=== PATIENT | male | born 1970 | race Caucasian/White ===

== ENCOUNTER 2019-06-18 20:31 | Emergency (ER) | payer SELFPAY ==
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
[2019-06-18] MEDS ORDERED: NS 0.9% 1000 ML** 2,000 ML IV ONE (20:51)
[2019-06-18] MEDS ORDERED: Ondansetron INJ* 2 MG/ML VIAL IV ONE (20:52)
[2019-06-18] MEDS ORDERED: Morphine 4 MG/ML VIAL (1 ml) 4 MG/ML VIAL IV ONE (20:52)
[2019-06-18 21:37] LABS: ABS Eosinophils 0.2 10^3/ul (0-0.6); ABS Monocytes 0.6 10^3/ul (0-0.8); ABS Neutrophils 4.4 10^3/ul (1.5-7.7); Eosinophil % 2.5 %; Hematocrit 44 % (42-52); Hemoglobin 14.6 g/dL (14.0-18.0); Mean Corpuscular HGB Conc 34 g/dL (31-36); Mean Corpuscular Hemoglobin 29 pg (27-31); Mean Corpuscular Volume 87 fL (80-94); Mean Platelet Volume 9.3 fL (7.4-10.4); Nucleated Red Blood Cells % 0.1; Platelet Count 196 10^3/uL (150-450); Red Blood Count 5.01 10^6 /uL (4.18-5.48); Red Cell Distribution Width 14 % (10-15); White Blood Count 8.3 10^3/uL (3.5-10.8)
[2019-06-18 21:48] LABS: Urine Appearance Clear; Urine Bacteria Absent (Absent); Urine Bilirubin Negative (Negative); Urine Blood Negative (Negative); Urine Color Yellow; Urine Glucose Negative (Negative); Urine Ketones Negative (Negative); Urine Nitrite Negative (Negative); Urine Protein Negative (Negative); Urine Red Blood Cell Absent (Absent); Urine Specific Gravity 1.017 (1.010-1.030); Urine Squamous Epithelial Cell Present (Absent); Urine Urobilinogen Negative (Negative); Urine White Blood Cell 2+(11-20/hpf) (Absent)
[2019-06-18 21:54] LABS: Albumin 3.7 g/dL (3.2-5.2); Albumin/Globulin Ratio 1.3 (1-3); BUN/Creatinine Ratio 27.6 (8-20); C Reactive Protein 3.04 mg/L (<8.01); Calcium 9.2 mg/dL (8.6-10.3); EGFR African American 111.9 (>60); EGFR Non-African American 92.5 (>60); Globulin 2.9 g/dL (2-4); Potassium 4.3 mmol/L (3.5-5.0); Total Bilirubin 0.3 mg/dL (0.2-1.0); Total Protein 6.6 g/dL (6.4-8.9)
[2019-06-18] MEDS ORDERED: Iohexol 300* (CONTRAST) 10 ML SDV IV ONE (22:38)
[2019-06-19 00:36] VITALS: BP 134/76
== END 2019-06-19 00:50 | disposition home or self-care (01) ==
LOC: ED 20:31
DX: K52.9 Noninfective gastroenteritis and colitis, unspecified (principal); R10.30 Lower abdominal pain, unspecified; I10 Essential (primary) hypertension; F17.210 Nicotine dependence, cigarettes, uncomplicated; R11.2 Nausea with vomiting, unspecified
CPT/HCPCS: 36415; 74177; 80053; 81003; 81015; 83605; 83690; 85025; 86140; 87086; 93005; 96361; 96374; 96375; 99283; J2270; J2405; Q9967

== ENCOUNTER 2019-07-08 00:43 | Emergency (ER) | payer MEDICAID ==
[2019-07-08 03:05] LABS: Urine Appearance Cloudy; Urine Bilirubin Negative (Negative); Urine Blood Negative (Negative); Urine Color Yellow; Urine Glucose Negative (Negative); Urine Ketones Negative (Negative); Urine Nitrite Negative (Negative); Urine Protein Negative (Negative); Urine Specific Gravity 1.023 (1.010-1.030); Urine Urobilinogen Negative (Negative)
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
[2019-07-08] MEDS ORDERED: Al Hydrox/Mg Hydrox/Simet LIQ* 30 ML UDC PO ONE (03:10)
[2019-07-08] MEDS ORDERED: Lidocaine 2% VISCOUS* 15 ML UDC PO ONE (03:10)
[2019-07-08 03:31] LABS: ABS Eosinophils 0.1 10^3/ul (0-0.6); ABS Lymphocytes 2.6 10^3/ul (1.0-4.8); ABS Monocytes 0.6 10^3/ul (0-0.8); ABS Neutrophils 5.4 10^3/ul (1.5-7.7); Eosinophil % 1.3 %; Hematocrit 46 % (42-52); Hemoglobin 15.8 g/dL (14.0-18.0); Lymphocyte % 29.5 %; Mean Corpuscular HGB Conc 34 g/dL (31-36); Mean Corpuscular Hemoglobin 30 pg (27-31); Mean Corpuscular Volume 87 fL (80-94); Mean Platelet Volume 9.4 fL (7.4-10.4); Nucleated Red Blood Cells % 0.2; Platelet Count 214 10^3/uL (150-450); Red Blood Count 5.33 10^6 /uL (4.18-5.48); Red Cell Distribution Width 15 % (10-15); White Blood Count 8.8 10^3/uL (3.5-10.8)
[2019-07-08 03:35] LABS: INR 1.04 (0.82-1.09)
[2019-07-08 03:49] LABS: Alcohol < 10 mg/dL (<10)
[2019-07-08 03:50] LABS: ALT 301 U/L (7-52); AST 68 U/L (13-39); Albumin 4.3 g/dL (3.2-5.2); Albumin/Globulin Ratio 1.3 (1-3); Alkaline Phosphatase 152 U/L (34-104); Anion Gap 6 mmol/L (2-11); BUN/Creatinine Ratio 14.6 (8-20); Blood Urea Nitrogen 13 mg/dL (6-24); CO2 Carbon Dioxide 25 mmol/L (22-32); Calcium 9.9 mg/dL (8.6-10.3); Chloride 105 mmol/L (101-111); EGFR Non-African American 90.1 (>60); Globulin 3.4 g/dL (2-4); Glucose 92 mg/dL (70-100); Potassium 4.1 mmol/L (3.5-5.0); Sodium 136 mmol/L (135-145); Total Protein 7.7 g/dL (6.4-8.9)
[2019-07-08] MEDS ORDERED: Ibuprofen TAB* 400 MG PO ONE (03:55)
[2019-07-08 05:10] LABS: Urine Benzodiazepine Screen None Detected (None Detect); Urine Opiates Screen None Detected (None Detect)
[2019-07-08 05:27] VITALS: BP 146/70
== END 2019-07-08 05:20 | disposition home or self-care (01) ==
LOC: ED 00:43
DX: R10.13 Epigastric pain (principal); R51 Headache; R11.0 Nausea; R53.83 Other fatigue; K59.00 Constipation, unspecified; I10 Essential (primary) hypertension
CPT/HCPCS: 36415; 74018; 80053; 80307; 80320; 81003; 83605; 84484; 85025; 85610; 93005; 99282; A9270-GY; G0480

== ENCOUNTER 2019-07-08 21:56 | Emergency (ER) | payer MEDICAID ==
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
[2019-07-08 22:48] LABS: ABS Eosinophils 0.1 10^3/ul (0-0.6); ABS Lymphocytes 2.1 10^3/ul (1.0-4.8); ABS Monocytes 0.6 10^3/ul (0-0.8); ABS Neutrophils 4.7 10^3/ul (1.5-7.7); Eosinophil % 1.5 %; Hematocrit 45 % (42-52); Hemoglobin 15.3 g/dL (14.0-18.0); Lymphocyte % 27.5 %; Mean Corpuscular HGB Conc 34 g/dL (31-36); Mean Corpuscular Hemoglobin 29 pg (27-31); Mean Corpuscular Volume 87 fL (80-94); Mean Platelet Volume 9.3 fL (7.4-10.4); Nucleated Red Blood Cells % 0.1; Platelet Count 217 10^3/uL (150-450); Red Blood Count 5.24 10^6 /uL (4.18-5.48); Red Cell Distribution Width 15 % (10-15); White Blood Count 7.5 10^3/uL (3.5-10.8)
[2019-07-08 23:06] LABS: Albumin 4.3 g/dL (3.2-5.2); Albumin/Globulin Ratio 1.4 (1-3); BUN/Creatinine Ratio 15.5 (8-20); C Reactive Protein 5.97 mg/L (<8.01); Calcium 9.6 mg/dL (8.6-10.3); EGFR African American 116.6 (>60); EGFR Non-African American 96.3 (>60); Globulin 3.1 g/dL (2-4); Potassium 4.1 mmol/L (3.5-5.0); Total Protein 7.4 g/dL (6.4-8.9)
[2019-07-08 23:32] LABS: TSH (Thyroid Stimulating Horm) 2.27 mcIU/mL (0.34-5.60)
[2019-07-08 23:46] VITALS: BP 133/66
== END 2019-07-08 23:46 | disposition home or self-care (01) ==
LOC: ED 21:56
DX: R07.89 Other chest pain (principal); R06.02 Shortness of breath; I10 Essential (primary) hypertension; Z91.14 Patient's other noncompliance with medication regimen; F17.200 Nicotine dependence, unspecified, uncomplicated
CPT/HCPCS: 36415; 71046; 80053; 83735; 84443; 84484; 85025; 85379; 86140; 99283

== ENCOUNTER 2019-07-12 01:05 | Emergency (ER) | payer MEDICAID ==
[2019-07-12] MEDS ORDERED: Ketorolac INJ* 30 MG/ML 1 ML VIAL IM ONE (01:36)
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
[2019-07-12 02:16] LABS: ABS Eosinophils 0.2 10^3/ul (0-0.6); ABS Lymphocytes 2.4 10^3/ul (1.0-4.8); ABS Monocytes 0.5 10^3/ul (0-0.8); ABS Neutrophils 3.2 10^3/ul (1.5-7.7); Hematocrit 43 % (42-52); Hemoglobin 14.7 g/dL (14.0-18.0); Lymphocyte % 38.4 %; Mean Corpuscular HGB Conc 34 g/dL (31-36); Mean Corpuscular Hemoglobin 29 pg (27-31); Mean Corpuscular Volume 87 fL (80-94); Mean Platelet Volume 9.3 fL (7.4-10.4); Nucleated Red Blood Cells % 0.1; Platelet Count 198 10^3/uL (150-450); Red Blood Count 5.01 10^6 /uL (4.18-5.48); Red Cell Distribution Width 15 % (10-15); White Blood Count 6.3 10^3/uL (3.5-10.8)
[2019-07-12 02:21] LABS: INR 0.99 (0.82-1.09)
[2019-07-12 02:38] LABS: Albumin 4.1 g/dL (3.2-5.2); Albumin/Globulin Ratio 1.4 (1-3); BUN/Creatinine Ratio 13.9 (8-20); Calcium 9.6 mg/dL (8.6-10.3); EGFR African American 125.1 (>60); EGFR Non-African American 103.4 (>60); Potassium 3.9 mmol/L (3.5-5.0); Total Bilirubin 0.6 mg/dL (0.2-1.0); Total Protein 7.1 g/dL (6.4-8.9)
[2019-07-12 04:07] VITALS: BP 152/91
== END 2019-07-12 04:05 | disposition home or self-care (01) ==
LOC: ED 01:05
DX: R07.89 Other chest pain (principal); I10 Essential (primary) hypertension; J45.909 Unspecified asthma, uncomplicated; F32.9 Major depressive disorder, single episode, unspecified; F17.200 Nicotine dependence, unspecified, uncomplicated
CPT/HCPCS: 36415; 71045; 80053; 83605; 83880; 84484; 85025; 85610; 93005; 96372; 99282; J1885

== ENCOUNTER 2019-07-13 07:27 | Observation (INO) | payer MEDICAID ==
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
[2019-07-13] MEDS ORDERED: Acetaminophen TAB* 325 MG PO ONE (07:49)
[2019-07-13] MEDS ORDERED: Aspirin TAB* 325 MG PO ONE (07:49)
[2019-07-13 07:56] LABS: ABS Eosinophils 0.2 10^3/ul (0-0.6); ABS Lymphocytes 2.6 10^3/ul (1.0-4.8); ABS Monocytes 0.4 10^3/ul (0-0.8); Eosinophil % 3.2 %; Hematocrit 43 % (42-52); Hemoglobin 14.6 g/dL (14.0-18.0); Lymphocyte % 42.2 %; Mean Corpuscular HGB Conc 34 g/dL (31-36); Mean Corpuscular Hemoglobin 30 pg (27-31); Mean Corpuscular Volume 87 fL (80-94); Mean Platelet Volume 9.6 fL (7.4-10.4); Nucleated Red Blood Cells % 0.1; Platelet Count 192 10^3/uL (150-450); Red Blood Count 4.93 10^6 /uL (4.18-5.48); Red Cell Distribution Width 15 % (10-15); White Blood Count 6.3 10^3/uL (3.5-10.8)
[2019-07-13 08:11] LABS: Albumin/Globulin Ratio 1.5 (1-3); BUN/Creatinine Ratio 17.7 (8-20); Calcium 9.2 mg/dL (8.6-10.3); EGFR African American 125.1 (>60); EGFR Non-African American 103.4 (>60); Globulin 2.7 g/dL (2-4); Potassium 3.6 mmol/L (3.5-5.0); Total Bilirubin 0.5 mg/dL (0.2-1.0); Total Protein 6.7 g/dL (6.4-8.9)
[2019-07-13] MEDS ORDERED: Ondansetron ODT TAB* 4 MG PO ONE (08:34)
[2019-07-13] MEDS ORDERED: Nitroglycerin TAB 0.4 MG* 0.4 MG TAB SL ONE (10:10)
[2019-07-13] MEDS ORDERED: Ondansetron INJ* 2 MG/ML VIAL IV ONE (10:36)
[2019-07-13] MEDS ORDERED: Ketorolac INJ* 30 MG/ML 1 ML VIAL IV PUSH ONE (10:37)
[2019-07-13] MEDS ORDERED: Paliperidone ER TAB* 9 MG TAB.ER PO ONE (13:00)
--- NOTE | 2019-07-13 13:02 | HP ---
ADMISSION HISTORY AND PHYSICAL: DATE OF ADMISSION: 07/13/19 PRIMARY CARE PROVIDER: None. ATTENDING FOR THIS ADMISSION: Dr. Sahra Goodman.* (DICTATED BY SIVA WHEATLEY NP) CHIEF COMPLAINT: Left-sided chest pain since yesterday, also some accompanying nausea. HISTORY OF PRESENT ILLNESS: Mr. Henderson is a 49-year-old male patient who has had multiple trips to the ER since 07/08/19 for variable complaints. Last week he had some complaints of abdominal pain, nausea, and vomiting, and then one complaint of chest pain the other day and then arrived today also with complaint of left-sided chest pain and nausea. Today, in the emergency department, he states that yesterday when he was lying down and watching TV, he started with a sharp left- sided chest pain. He notes that there were no contributing factors. He denies any diaphoresis or shortness of breath. No precipitating factors such as activity or exercise. He also denies any previous heavy lifting, twisting, or bending. Prior to this event, the patient states that the chest pain has gotten progressively worse since last night and now rates it about a 7/10. He has gotten 2 doses of nitroglycerin with no relief. As a matter of fact, he just received a second dose of nitroglycerin approximately 10 minutes prior to my assessment and he states that the pain has increased, not decreased. He also endorses that his nausea is currently increasing. He describes the chest pain as now reproducible with deep inspiration and also when he crosses his left arm across his chest. He does not have any EKG changes on his EKG. Chest x-ray is clear. Lab work is unremarkable, however, because he has had some persistent complaints over the course of last week and this is his second visit to the ER, he also has some family cardiac history, the ER has requested us to evaluate the patient for observation admission. PAST MEDICAL HISTORY: Significant for hypertension, GERD, recent gastroenteritis, and some psychiatric history in 2016. PAST SURGICAL HISTORY: Left shoulder surgery in 1993. HOME MEDICATIONS: Include: 1. Amlodipine 5 mg daily. 2. Omeprazole 20 mg daily. ALLERGIES: He has no known drug allergies. HEALTHCARE PROXY: None. SOCIAL HISTORY: The patient is an active everyday smoker for many years, although the patient does state that he has decreased from 1 to 2 packs a day to less than 5 cigarettes per day. States that he used to drink alcohol socially, but now drinks alcohol very rarely. Denies any current illicit drug use, although in the record it does indicate that he may have used methamphetamines in the past. The patient is currently having some difficulty with housing. He is not . He has no children. REVIEW OF SYSTEMS: The patient denies any fever or chills. He denies any anorexia. He does endorse positive chest pain with deep inspiration and with movement of his left arm across his chest, it is 7/10. It is currently increasing. He denies any current cough or hemoptysis or shortness of breath. He is nauseous, but there is no active vomiting, no diarrhea. He does indicate his nausea that is in his lower abdomen, not in the upper abdomen. He denies any dysuria or hematuria. No focal weakness or sensory loss. No further arthralgias or myalgias. PHYSICAL EXAMINATION GENERAL: The patient is awake and alert and in no acute distress. VITAL SIGNS: Blood pressure 131/79, heart rate 66, respiratory rate 15, O2 saturation 96% on room air with a temperature of 98.0. HEENT: The patient is atraumatic, normocephalic. PERRLA. Nonicteric sclerae. He does wear glasses. Oral mucosa is moist. Tongue is midline. NECK: Supple, nontender. No JVD noted. No carotid bruits auscultated. No thyromegaly appreciated. LUNGS: Clear bilaterally to auscultation with no wheezing, rhonchi, or rales. CARDIOVASCULAR: Positive S1, S2. Rate and rhythm are regular. No murmurs, gallops, or rubs noted. He has no edema. His chest wall on the left side is left anterior chest. He does have pain with palpation in the intercostal muscle spaces that does increase when I palpate on his expiration. ABDOMEN: Soft, nontender, nondistended. He has positive bowel sounds in all 4 quadrants. He has no organomegaly noted. MUSCULOSKELETAL: There is no clubbing, no cyanosis, no edema. He has full range of motion. SKIN: Warm, dry, and intact. NEUROLOGIC: Grossly intact with no focal deficits. PSYCHIATRIC: He is cooperative and appropriate. He is alert and oriented x3. LABORATORY DATA: WBCs 6.3, RBCs 4.93, hemoglobin 14.6, hematocrit 43, platelets 192. Sodium 137, potassium 3.6, chloride 108, CO2 23, BUN 14, creatinine 0.79, GFR 103.4, glucose 130, calcium 9.2, total bilirubin 0.50, AST 41, ALT 151, alk phos 157. Troponin is negative at 0.00, second troponin is pending. Total protein is 6.7, albumin 4.0, globulin 2.7, albumin-globulin ratio 1.5. IMAGING: Chest x-ray from today shows no active cardiopulmonary disease. EKG from today shows regular sinus rhythm, no acute ST segment changes with a rate of 72. No other imaging is available. IMPRESSION: Mr. Henderson is a 49-year-old male patient with no significant medical history, but presented to the emergency department today with atypical chest pain and some nausea. PLAN: The patient will be admitted to observation: DIAGNOSES: 1. Atypical chest pain. Given the patient's family history and this is his second visit to the ED with his chest pain, I do not feel that this is necessarily cardiac in origin given that it is entirely reproducible with palpation and with movement, also with deep inspiration. However, being that his family history indicates that his father who had quadruple bypass, hypertension and dyslipidemia, the patient should have a stress echo after his next troponin, which is due soon. In terms of his chest wall pain, we will try Toradol and see if this alleviates the musculoskeletal nature of his pain and reassess. 2. Transaminitis. It appears that his elevated LFTs were noted on 07/08/19, this is also when he came in with acute gastroenteritis. He may have had a transient elevation in his LFTs at that time secondary to viral illness. His LFTs are lower today than they were a few days ago, so they do seem to be trending downward. The CAT scan that he had on 07/08/19, did note some fatty liver disease; however, so this is something I think that should be followed up as an outpatient either with followup ultrasound after his LFTs resolved. It is not something I am overly concerned about at this time though because the LFTs continued to trend downward. He should have this followed up after discharge from hospital to ensure that these numbers continue to trend down. 3. Nausea. The patient again is recovering from acute gastroenteritis from a couple of days ago. We would trial him on some Zofran, continue PPI and milk of magnesia. If his nausea persists or advances to vomiting, I think some abdominal imaging should be warranted to ensure that he does not have some evolving gastroenteritis, also the CAT scan on 07/08/19, noted some diverticulosis, but not diverticulitis. He does not currently have a white count or fevers, so I am less inclined to think that this is diverticulitis starting; however, we will continue to monitor his abdominal exam and his symptoms. 4. History of some psychiatric treatment. It does appear that the patient was on Thorazine 3 years ago. He does not currently take any psychiatric medications; however, he is appropriate and not exhibiting any psychiatric distress. This is something that should be followed up as an outpatient. It is a concern to me the patient does not have a primary care provider. We should make a referral for this either to [facility] as an outpatient or another primary care provider before the patient is discharged. 5. For diet, he should be n.p.o. in case we can get his stress echo done today ; if not, we should try him on clear liquid diet given his current nausea, but for now he is to stay n.p.o. 6. Code status. He is a full code. 7. DVT prophylaxis. He is low risk given his age and lack of comorbidities. He should ambulate as tolerated. He does not need chemoprophylaxis for DVT. 8. Disposition. Admitted to observation. The rest of the patient course will be determined by further diagnostics, laboratories, and any other input from other providers as warranted during this admission. TIME SPENT: Fifty minutes on admission planning. This plan of care has been discussed with Dr. Sahra Goodman, the admitting attending on this case and she is in agreement with the plan. SIVA WHEATLEY, WENDI [id number]/[facility] #: [id number] MEHUL
[2019-07-13] MEDS: Paliperidone ER TAB* 9 MG TAB.ER PO SCH (13:15)
[2019-07-13] MEDS: Acetaminophen TAB* 325 MG PO PRN (13:15)
[2019-07-13] MEDS: Pantoprazole TAB * 40 MG TAB PO SCH (13:16)
[2019-07-13] MEDS: Magnesium Hydroxide LIQ* 30 ML UDC PO PRN (13:16)
[2019-07-13] MEDS: amLODIPine TAB* 5 MG PO SCH (13:16)
[2019-07-13] MEDS ORDERED: Perflutren Lipid Microsphere* 3 ML VIAL ONE ×3 (14:22)
[2019-07-13] MEDS ORDERED: Atropine SYRINGE* 0.1 MG/ML 10 ML SYRINGE (1 MG) ONE ×3 (14:28)
[2019-07-13] MEDS ORDERED: DOBUTamine 2000 MCG/ML IVPREMX 500 MG/250 ML BAG IV ONE ×3 (14:29)
[2019-07-13] MEDS ORDERED: Metoprolol Tartrate IV* 1 MG/ML 5 ML VIAL ONE (14:29)
--- NOTE | 2019-07-13 15:50 | CONS ---
CONSULTATION REPORT: DATE OF CONSULT: 07/13/19 ATTENDING CLINICIAN: Margaux Juarez NP CONSULTING PHYSICIAN: Rober Roque MD REASON FOR CONSULT: "Thoughts of hurting people." SUBJECTIVE HISTORY: Soren is a 49-year-old single white male with a history of unspecified psychotic disorder, who is currently hospitalized on the telemetry unit after presenting voluntarily to the hospital complaining of chest pain. Upon his arrival on the fourth floor, he allegedly informed staff members that he was feeling irritable and had thoughts of hurting people. Mr. Henderson did not specify any specific target for these feelings, but at times appeared to be slightly agitated, talking to himself, appearing somewhat paranoid. When I came upstairs to meet with him, I recognized him from his most recent [facility] admission which happened to be in August of 2016. He did make a paranoid statement to the effect "everybody is fucking with me." His recent history is that he has returned to the [facility] from [place] where he spends roughly half of his time. He has been living in emergency fpc at the local [facility] through [facility]. The patient is supposed to be following up with [facility] and does state that he had a recent intake, although he has not seen a psychiatrist there yet. 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 A check of his labs indicates that urine drug screening was not performed in our emergency room. At any rate, I asked the patient about his thoughts of harming others and he states that he does feel paranoid and that people are messing with his life. He does not have any specific person that he would like to hurt, but he is requesting resumption of the antipsychotic therapy. He states that the medication that works the best for him is Invega at the dose of 9 mg daily. The patient does have some significant recent stressors in that his mother a few months ago, his father and only brother continued to reside together in [place], but he reports that they are antagonistic towards him and do not have any involvement in his life. I asked repeatedly about suicidal and homicidal ideations and he consistently denies these. When asked about psychotic symptoms , he does endorse somewhat vague feelings that people are out to get him, but other than persecutory delusions, he denies auditory or visual hallucinations and denies psychotic phenomenon such as thought broadcasting, thought disorganization or affective flattening. I screened him for neurovegetative symptoms of depression which he denied. PAST PSYCHIATRIC HISTORY: The patient has 2 psychiatric admissions here at [facility] , both in the fall and early winter of 2015. He states that he has been hospitalized up to 10 times in the [facility], most recently earlier in 2019. He is recently enrolled in [facility] and would like to be placed back on 9 mg of Invega. I also see from his record that he has done well on t.i.d. dosing of Thorazine. The patient does have 1 known suicide attempt that he admits to, which was in 2014 in which he took 60 sleeping pills in an overdose. SUBSTANCE ABUSE HISTORY: The patient is a chronic cannabis and methamphetamine abuser. 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 PAST MEDICAL HISTORY: Significant for obesity and chest pain. He also has hypertension and gastroesophageal reflux disease. HOME MEDICATIONS: Include: 1. Norvasc 5 mg daily. 2. Omeprazole 40 mg daily. ALLERGIES: He has no known drug allergies. FAMILY HISTORY: Noncontributory. SOCIAL HISTORY: The patient was born and raised to an intact family in [place], [place]. He does have an elder brother who continues to live with his father there. His mother recently . The patient has never been . He has no children. He graduated from [employer] and attended 1 year of college. 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 I asked him how he supports himself and he states that he receives emergency housing through [facility] and also receives Medicaid and food stamps. From 2007 to 2009, he was incarcerated in [place] for drug-related charges. He has never been on probation. MENTAL STATUS EXAM: The patient is an overweight, bearded, bespectacled, white male with fair grooming, who is dressed in a patient gown, lying propped up in his bed on the fourth floor. He is calm, cooperative, answers questions, although at times he bursts out with explanations of feeling like people are out to get him. His speech has a normal rate, tone, and volume for the most part. His thought process is linear and goal directed. Thought content is significant for his desire to get back on antipsychotic therapy. He is denying suicidal or homicidal ideations at this time, although he earlier endorsed thoughts of harming others, which were vague and without specific target. He denies auditory or visual hallucinations, although he does demonstrate clear paranoia. Insight and judgment are fair given his willingness to get back on psychotropic medication. Cognitively, he is awake and alert with what would appear to be an average intellect. 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 [place] II: Cluster B personality traits by history. IMPRESSION: The patient is a 49-year-old single white male, who is tenuously housed, who self-reported to the emergency room complaining of chest pain, who is currently hospitalized on the telemetry unit and made aggressive statements of harming others at [address] [place] [address]. Upon evaluation, he is steadfastly denying suicidal or homicidal ideations, but he does endorse paranoia and irritability which he states would be helped by antipsychotic therapy. RECOMMENDATIONS TO PRIMARY TEAM: Psychiatry does not believe that the patient is acutely dangerous to himself or others and I do not think a one-to-one is warranted. Therefore, I will discontinue this. I do think what is most necessary is immediate resumption of antipsychotic therapy and I will start a trial of halopredone 9 mg p.o. daily as per his request. Psychiatry will continue to follow. I do not believe there is necessarily a rationale for transfer to behavioral science unit pending medical clearance. However, this could change and therefore, we will reevaluate him tomorrow which is Wednesday, 10/01. Psychiatry will continue to co-manage this patient with you. Thank you for the consult. [id number]/[facility] #: [id number] MEHUL
--- NOTE | 2019-07-13 16:43 | STRESS ---
*[facility]* [place] [address] Fax #: [phone] Stress Echocardiogram Dobutamine Patient: Soren Henderson : 1970 Study Date: 07/13/2019 Age: 49 Gender: M HR: 64 bpm Height: 72 in /182.9 cm BSA: 2.54 m^2 Weight: 270 lb /122.7 kg BMI: 36.7 kg/m^2 *[employer] Plant Operations Engineer: * Brigette Reynolds RDCS RN *Referring Physician: * Margaux Juarez *Reading Physician: * Raudel Cohen MD Indications: Chest Pain, unspecified. History: GERD. Risk factors: Current tobacco use. Hypertension. Conclusions Summary: Patient had chest discomfort before, during and after study [address] depression on EKG No echocardiogram evidence of ischemia Overall normal dobutamine stress echocardiogram. Study data: Stress echocardiogram Consent: The risks and benefits of the procedure, including alternatives were discussed with the patient and/or their health care sales representative canvas products and written informed consent was obtained. Procedure: Initial setup: Intravenous access was obtained. Surface ECG leads and manual cuff blood pressure measurements were monitored throughout the procedure. A baseline ECG was recorded. Dobutamine stress test. Dobutamine was administered IV at an initial rate of 20 mcg/kg/min then 40 mcg/kg/min. Heart rate response was augmented by the addition of Atropine 0.5 mg IV. The infusion was terminated after achieving the target heart rate. Transthoracic stress echocardiography. Image quality was fair. Images were captured at baseline, low dose, peak dose, and recovery. A total of 7 ml Definity was administered IV to enhance imaging. Location: Echo laboratory. Patient status: Inpatient. Patient location: Stress lab. Patient room number: 437. Study completion: There were no complications. Findings Baseline ECG: Normal sinus rhythm. Stress results: Maximal heart rate during stress was 155 bpm (92% of maximal predicted heart rate). The maximal predicted heart rate was 169 bpm.The target heart rate was 144 bpm.The target heart rate was achieved. The heart rate response to stress is normal. There is a normal resting blood pressure with a hypertensive response to stress. Stress ECG: Sinus tachycardia. 1 mm horizontal inferior and V4-V6 ST depression. Peak stress: LV global systolic function is hyperdynamic. Normal wall motion; no LV regional wall motion abnormalities. Rest: LV global systolic function is normal. Normal wall motion; no LV regional wall motion abnormalities. Stress echo results: Left ventricular ejection fraction was normal at rest and with stress. There is no evidence for stress-induced ischemia. Chest pain throughout study. The stress response falls within the normal range. Prepared and electronically signed by Raudel Cohen MD 07/13/2019 16:42
[2019-07-13] MEDS ORDERED: Ondansetron INJ* 2 MG/ML VIAL IV SCH (17:00)
[2019-07-13] MEDS ORDERED: chlorproMAZINE TAB* 100 MG PO PRN (17:13)
[2019-07-13] MEDS ORDERED: Ondansetron INJ* 2 MG/ML VIAL IV PRN (17:17)
[2019-07-14] MEDS: Pantoprazole TAB * 40 MG TAB PO SCH (08:11)
[2019-07-14] MEDS: amLODIPine TAB* 5 MG PO SCH (08:12)
[2019-07-14] MEDS: Paliperidone ER TAB* 9 MG TAB.ER PO SCH (08:12)
[2019-07-14] MEDS ORDERED: Atropine SYRINGE* 0.1 MG/ML 10 ML SYRINGE (1 MG) ONE (09:00)
[2019-07-14 11:29] VITALS: BP 139/62
[2019-07-14] MEDS: Acetaminophen TAB* 325 MG PO PRN (11:39)
--- NOTE | 2019-07-14 12:39 | CONSULT ---
Identification - Patient Identification Reason for Psychiatric Consultation: Patient Distress -: Patient is a 49 year old, M admitted on 07/13/19. - MHU Identification Employment Status: Unemployed Hx Psychiatric Hospitalization: Yes History - Objective HPI: Soren is seen for follow up on . He has just finished lunch and appears calm and cooperative. I asked about his mood and he states that he is still "angry" but that the Invega is helping. He continues to deny SI or HI and is appropriately allowing staff to assist him in making housing and psychiatric/ medical follow up arrangements. He denies any untoward effects from paliperidone. Exam Appearance: Obese Hygiene: Normal Grooming: Fairly Well Kept Psychomotor Activities: Normal Exhibits Abnormal Movement: No Attitude and Relatedness: Cooperative Eye Contact: Fair - Speech Quality: Unpressured Latencies: Normal Quantity: Terse Patient's Decription of Mood: "Angry" Observed Affect: Fair Affect Consistent with: Euthymia Patient's Thought Process: Goal Directed Thought Content: No Passive Wish, No Suicidal Planning, No Homicidal Ideation, No Paranoid Ideation Experiencing Hallucinations: No, Sensorium is Clear Type of Hallucinations: Visual: No, Auditory: No, Command: No Level of Consciousness: Alert Orientation: Yes Intact, Yes Orientated to Time, Yes Orientated to Place, Yes Orientated to Person Impulse Control: Tenuous Insight and Judgement: Fair Impression - Impression Clinical Impression: 49 y.o. single, white, homeless male with a history of recurrent psychosis admitted to the Medical service due to chest pain, who presents with intense irritability and hostility towards unspecified others. Inpatient DSM-V Dx: F29 Merits Inpatient Hospitalization: No BSU: Problem List - Patient Problems (1) Psychotic disorder Current Visit: No Status: Acute Priority: Medium Plan - Treatment Plan Treatment Plan: The patient is tolerating paliperidone 9mg PO qday well and is agreeable to continuing this as an outpatient. He would like to f/u at [facility]. The patient is psychiatrically cleared for discharge as he denies SI or HI and would be best served by receiving care in the least restrictive setting. Psychiatry is signing off. Continued Medication Management: Start Medication Medications: Current Medications Acetaminophen (Tylenol Tab*) 650 mg PO Q4H PRN PRN Reason: MILD PAIN or TEMP > 100.4 Last Admin: 07/14/19 11:39 Dose: 650 mg Amlodipine Besylate (Norvasc Tab*) 5 mg PO DAILY [facility] Last Admin: 07/14/19 08:12 Dose: 5 mg Chlorpromazine HCl (Thorazine Tab*) 100 mg PO Q6H PRN PRN Reason: agitation or anxiety Magnesium Hydroxide (Milk Of Magnesia Liq*) 30 ml PO Q4H PRN PRN Reason: Constipation or dyspepsia Last Admin: 07/13/19 13:16 Dose: 30 ml Ondansetron HCl (Zofran Inj*) 4 mg IV Q4H PRN PRN Reason: NAUSEA/VOMITING Last Admin: 07/13/19 17:48 Dose: 4 mg Paliperidone (Invega Er Tab*) 9 mg PO DAILY [facility] Last Admin: 07/14/19 08:12 Dose: 9 mg Pantoprazole Sodium (Protonix Tab*) 40 mg PO DAILY [facility] Last Admin: 07/14/19 08:11 Dose: 40 mg - Discharge Plan Discharge Plan: Outpatient Follow [facility]
[2019-07-14] MEDS: Magnesium Hydroxide LIQ* 30 ML UDC PO PRN (15:56)
--- NOTE | 2019-07-14 23:55 | DS ---
CC: [facility]; [facility] * DISCHARGE SUMMARY: DATE OF ADMISSION: 07/13/19 DATE OF DISCHARGE: 07/14/19 PRIMARY CARE PROVIDER: Wesley Solano of [facility]. MY ATTENDING WHILE IN THE HOSPITAL: Dr. Kenya Senior * (LUIS F Alanis dictating). PRIMARY DISCHARGE DIAGNOSES: Chest pain, viral syndrome, transaminitis likely due to viral syndrome. SECONDARY DISCHARGE DIAGNOSES: 1. Hypertension. 2. Gastroesophageal reflux disease. STUDIES WHILE IN THE HOSPITAL: Chest x-ray from 07/13/19 read as no active cardiopulmonary disease. Electrocardiogram from 07/13/19 read as normal sinus rhythm, normal axis, no ST-segment elevation or depression, no hypertrophy or enlargement, heart rate of 71, QTc of 443. Compared to previous exam, there are no significant changes. Stress echocardiography from 07/13/19 read as left ventricular systolic function is hyperdynamic, no wall motion or regional wall motion abnormalities. Normal echocardiogram. No evidence of obstruction or ischemia. The patient had chest pain throughout the study. MEDICATIONS AT DISCHARGE: 1. Amlodipine 5 mg p.o. daily. 2. Omeprazole 40 mg p.o. daily. 3. Tylenol 650 mg q.4 hours as needed. 4. Zofran 4 mg p.o. q.6 hours as needed. 5. Invega ER 9 mg p.o. daily. 6. Guaifenesin 100 mg p.o. q.6 hours as needed. New medications at discharge: 1. Tylenol. 2. Zofran. 3. Invega. 4. Guaifenesin. Medications discontinued at discharge: None. HOSPITAL COURSE: This is a brief summary of the patient's presentation. For more details, please see the history and physical from Margaux Juarez NP on 07/13. In brief, the patient is a 49-year-old male with past medical history significant for the above, who recently moved to [facility] and has been to the emergency department several times in the last 3 weeks for various complaints, most recently due to gastroenteritis with elevated transaminases. He was discharged from the emergency department with this finding. On the day of his admission, the patient had a complaint of chest pain, which began while he was lying down and on the day before his admission he had diaphoresis with shortness of breath. He had no presenting factors but he later said that it worse with breathing and palpation of his chest. Nitroglycerin did not affect it at all. The patient was admitted to the hospital. His chest pain gradually decreased. The patient underwent a stress echocardiogram as above which showed no wall motion abnormalities. The patient had 2 troponins which were negative. The patient had transaminitis but this was decreased from the previous exams. The patient had an elevated glucose, but this is likely a nonfasting level. The patient while he is on the floor made taunting comments about liking to hurt people. The patient was evaluated by Dr. Rober Roque of Psychiatry, who did not believe the patient need a 1-to-1, but he did recommend resuming his antipsychotic therapy. The patient previously had been on Invega and tolerated this well. The patient also had been on Thorazine, this was started as needed but the patient did not need it while in the hospital. The patient was not deemed to be needing inpatient psychiatric services. The patient's chest pain resolved. The patient had one loose bowel movement overnight but no other abdominal pain or diarrhea. The patient was agreeable to going home, follow up at [facility] and taking his Invega 9 mg daily which he was tolerating while in the hospital. The patient did feel irritable and angry, but felt like he has chest pain, this was improving on the Invega. The patient was stable and amenable for discharge on 07/14/19. PHYSICAL EXAM ON THE DAY OF DISCHARGE: General: The patient is a 49-year-old male who appears stated age and sitting comfortably in the bed, in no acute distress. Vital Signs: At the time of discharge, temperature 97.7, pulse rate 67, respiratory rate 18, oxygen saturation 97% on room air, blood pressure 139/ 62. HEENT: Head normocephalic, atraumatic. Sclerae anicteric. No conjunctival injection. Nasal mucosa moist. Oral mucosa moist. No pharyngeal erythema, discharge, or exudate. Neck: Supple, nontender. No lymphadenopathy. No carotid bruits auscultated. No JVD. Cardiac: Regular rate and rhythm. No clicks, murmurs, gallops, or rubs. Pulses are 2+ in the bilateral dorsalis pedis, posterior tibialis, and radial areas. Respiratory: Clear to auscultation bilaterally. No wheezes, rales, or rhonchi. Good air exchange bilaterally. Abdomen: Soft, nontender, nondistended. Bowel sounds present and normoactive in all 4 quadrants. No hepatosplenomegaly. No abdominal bruits auscultated. No hepatojugular reflux. Genitourinary: No suprapubic or CVA tenderness. Skin: Clean, dry, and intact. No rash. Neuro: Cranial nerves II through XII intact. No focal deficits. Alert and oriented x3. Psychiatric: Flat affect. Irritable, otherwise. No suicidal or homicidal ideation. No aggression. DISCHARGE PLAN BY PROBLEM: 1. Chest pain. The patient had negative troponins, no EKG changes, was not typical for cardiac chest pain, had a negative stress echocardiogram. Given this reproducible in nature and worse with breathing, it is likely musculoskeletal. This may also be related to inflammation of the chest from his recent viral infection. The patient will treat this with Tylenol. The patient will return to the hospital for chest pain that has worsened or different in character. 2. Hypertension. The patient is currently normotensive. Continue the patient' s amlodipine. 3. Irritability, history of psychotic disorder and suicide attempt. The patient will be continued on his Invega and follow up with his [facility]. The patient does not need an inpatient behavior services unit admission. 4. GERD. Continue the patient's pantoprazole. 5. Viral infection. The patient had a nonsignificant viral infection causing upper respiratory symptoms, gastroenteritis, and likely transaminitis, it is trending down, though it should be continued to be trended with possible further elucidation with imaging of his liver. CONDITION: Stable. DISPOSITION: Home, to [facility]. TIME SPENT: Approximately 60 minutes were spent on the discharge of this patient, 30 of which were spent [id number] with the patient obtaining history and physical and discussing treatment plan. LUIS F ALANIS [id number]/[facility] #: [id number]
== END 2019-07-14 16:06 | disposition home or self-care (01) ==
LOC: ED 07:27 → MEDTELE 10:09
PROVIDERS: ADMIT Internal Medicine; ATTEND Internal Medicine
DX: R07.9 Chest pain, unspecified (principal); B34.9 Viral infection, unspecified; I10 Essential (primary) hypertension; K21.9 Gastro-esophageal reflux disease without esophagitis; R06.02 Shortness of breath; R11.0 Nausea; R05 Cough; Z87.891 Personal history of nicotine dependence
CPT/HCPCS: 36415; 71046; 80053; 84484; 85025; 93005; 93351; 96365; 96375; 99283; A9270-GY; G0378; J0461; J1250; J1885; J2405; J3490

== ENCOUNTER 2019-07-17 02:26 | Emergency (ER) | payer MEDICAID ==
[2019-07-17 02:32] VITALS: BP 135/87
[2019-07-17] MEDS ORDERED: NS 0.9% 1000 ML** 1,000 ML IV ONE (02:54)
[2019-07-17] MEDS ORDERED: Ketorolac INJ* 30 MG/ML 1 ML VIAL IV ONE (02:54)
[2019-07-17] MEDS ORDERED: diPHENhydraMINE IV* 50 MG/ML 1 ml VIAL (BENADRYL) IV ONE (02:55)
[2019-07-17] MEDS ORDERED: PROCHLORPERAZINE INJ 5 MG/ML 2 ML VIAL IV ONE (02:55)
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
== END 2019-07-17 04:17 | disposition home or self-care (01) ==
LOC: ED 02:26
DX: R51 Headache (principal); I10 Essential (primary) hypertension; J45.909 Unspecified asthma, uncomplicated; F32.9 Major depressive disorder, single episode, unspecified; F17.210 Nicotine dependence, cigarettes, uncomplicated; Z91.5 Personal history of self-harm
CPT/HCPCS: 96361; 96374; 96375; 99283; J0780; J1200; J1885

== ENCOUNTER 2019-07-17 11:46 | Emergency (ER) | payer MEDICAID ==
[2019-07-17] MEDS ORDERED: Ketorolac INJ* 30 MG/ML 1 ML VIAL IV PUSH ONE (12:28)
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
[2019-07-17 12:56] LABS: ABS Eosinophils 0.1 10^3/ul (0-0.6); ABS Lymphocytes 1.9 10^3/ul (1.0-4.8); ABS Monocytes 0.6 10^3/ul (0-0.8); ABS Neutrophils 2.9 10^3/ul (1.5-7.7); Eosinophil % 2.6 %; Hematocrit 41 % (42-52); Hemoglobin 13.8 g/dL (14.0-18.0); Lymphocyte % 34.1 %; Mean Corpuscular HGB Conc 34 g/dL (31-36); Mean Corpuscular Hemoglobin 29 pg (27-31); Mean Corpuscular Volume 87 fL (80-94); Mean Platelet Volume 9.4 fL (7.4-10.4); Nucleated Red Blood Cells % 0.1; Platelet Count 170 10^3/uL (150-450); Red Blood Count 4.68 10^6 /uL (4.18-5.48); Red Cell Distribution Width 15 % (10-15); White Blood Count 5.6 10^3/uL (3.5-10.8)
[2019-07-17 13:08] LABS: Albumin 3.7 g/dL (3.2-5.2); Calcium 9.1 mg/dL (8.6-10.3); Potassium 4.3 mmol/L (3.5-5.0); Total Bilirubin 0.4 mg/dL (0.2-1.0)
[2019-07-17 13:14] LABS: Albumin/Globulin Ratio 1.3 (1-3); BUN/Creatinine Ratio 28.9 (8-20); EGFR African American 107.6 (>60); Globulin 2.8 g/dL (2-4); Total Protein 6.5 g/dL (6.4-8.9)
[2019-07-17] MEDS ORDERED: Iohexol 350* (CONTRAST) 500 ML MDV IV ONE (13:16)
[2019-07-17 16:39] VITALS: BP 174/82
== END 2019-07-17 16:36 | disposition home or self-care (01) ==
LOC: ED 11:46
DX: R07.89 Other chest pain (principal); R06.02 Shortness of breath; I10 Essential (primary) hypertension; F17.210 Nicotine dependence, cigarettes, uncomplicated
CPT/HCPCS: 36415; 71275; 80053; 83605; 84484; 85025; 85610; 93005; 96374; 99284; J1885; Q9967

== ENCOUNTER 2019-07-19 22:45 | Emergency (ER) | payer MEDICAID ==
[2019-07-19] MEDS ORDERED: diPHENhydraMINE IV* 50 MG/ML 1 ml VIAL (BENADRYL) IV ONE (23:11)
[2019-07-19] MEDS ORDERED: PROCHLORPERAZINE INJ 5 MG/ML 2 ML VIAL IV ONE (23:11)
[2019-07-19] MEDS ORDERED: NS 0.9% 1000 ML** 2,000 ML IV ONE (23:11)
[2019-07-19] MEDS ORDERED: Ketorolac INJ* 30 MG/ML 1 ML VIAL IV PUSH ONE (23:11)
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
[2019-07-20 00:36] VITALS: BP 156/91
== END 2019-07-20 00:30 | disposition home or self-care (01) ==
LOC: ED 22:45
DX: G43.909 Migraine, unspecified, not intractable, without status migrainosus (principal); I10 Essential (primary) hypertension; J45.909 Unspecified asthma, uncomplicated; F32.9 Major depressive disorder, single episode, unspecified; F17.210 Nicotine dependence, cigarettes, uncomplicated
CPT/HCPCS: 70450; 93005; 96361; 96374; 96375; 99283; J0780; J1200; J1885

== ENCOUNTER 2019-07-27 16:31 | Inpatient (IN) | payer MEDICAID ==
[2019-07-27] MEDS ORDERED: Nitroglycerin TAB 0.4 MG* 0.4 MG TAB SL ONE (16:42)
[2019-07-27] MEDS ORDERED: Aspirin 81 mg CHEW TAB* 81 MG TAB.CHEW PO ONE (16:42)
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
[2019-07-27 17:14] LABS: ABS Eosinophils 0.1 10^3/ul (0-0.6); ABS Lymphocytes 1.9 10^3/ul (1.0-4.8); ABS Monocytes 0.4 10^3/ul (0-0.8); ABS Neutrophils 3.5 10^3/ul (1.5-7.7); Eosinophil % 2.3 %; Hematocrit 45 % (42-52); Hemoglobin 15.1 g/dL (14.0-18.0); Lymphocyte % 31.7 %; Mean Corpuscular HGB Conc 34 g/dL (31-36); Mean Corpuscular Hemoglobin 29 pg (27-31); Mean Corpuscular Volume 86 fL (80-94); Mean Platelet Volume 9.1 fL (7.4-10.4); Platelet Count 253 10^3/uL (150-450); Red Blood Count 5.19 10^6 /uL (4.18-5.48); Red Cell Distribution Width 15 % (10-15)
[2019-07-27 17:31] LABS: Albumin 4.2 g/dL (3.2-5.2); Albumin/Globulin Ratio 1.4 (1-3); BUN/Creatinine Ratio 20.3 (8-20); Calcium 9.3 mg/dL (8.6-10.3); EGFR African American 134.9 (>60); EGFR Non-African American 111.5 (>60); Globulin 3.1 g/dL (2-4); Potassium 4.3 mmol/L (3.5-5.0); Total Bilirubin 0.4 mg/dL (0.2-1.0); Total Protein 7.3 g/dL (6.4-8.9); Troponin I 0.01 ng/mL (<0.04)
[2019-07-27] MEDS ORDERED: Nitro 2% OINT* (Nitroglycerin) 1 INCH/PAK PAK TOPICAL ONE (18:21)
[2019-07-27] MEDS ORDERED: Metoprolol Tartrate IV* 1 MG/ML 5 ML VIAL IV ONE (18:33)
[2019-07-27 20:14] LABS: C Reactive Protein 5.1 mg/L (<8.01)
[2019-07-27 20:32] LABS: Hepatitis B Surface Antigen Nonreactive (Nonreactive)
[2019-07-27 20:49] LABS: Hepatitis C Antibody Negative (Negative)
[2019-07-27] MEDS ORDERED: Al Hydrox/Mg Hydrox/Simet LIQ* 30 ML UDC PO PRN (20:53)
[2019-07-27] MEDS: Enoxaparin(*) 40 MG/0.4 ML SYR SUBCUT SCH (22:51)
--- NOTE | 2019-07-28 00:12 | HP ---
ADMISSION HISTORY AND PHYSICAL: DATE OF ADMISSION: 07/27/19 PRIMARY CARE PROVIDER: None. ATTENDING PHYSICIAN WHILE IN THE HOSPITAL: Dr. Katt Zamora * (dictated by Eufemia Glass, WENDI). CHIEF COMPLAINT: Chest pain x2 days. HISTORY OF PRESENT ILLNESS: Mr. Henderson is a 49-year-old male who presented to the emergency room with the complaints of chest pain that started 2 days ago. The patient reports associated numbness and tingling in his arm, lightheadedness , and dizziness. He does report this pain as a constant throbbing pain associated with nausea and hot sweats. He does report that the pain resolved with the use of nitro to his chest. The patient was recently admitted on 07/13/19, at that time, he had a dobutamine stress echo. His stress test response within normal range. The left ventricular ejection fraction was normal at rest and with stress. There was no evidence for a stress-induced ischemia. The patient reports that he recently moved here the end of May, beginning of June from [place]. From what he reports he lived in [place] for approximately 2 years. He does report that he had several visits to the emergency room while in [place] for chest pain. He reports that he was discharged home after 6 to 8 hours in the emergency room each time with no further workup. The patient also reports that he has a history of bipolar, depression, and anxiety for which he is supposed to be taking Invega and lithium. He does report that he has not taken his Invega since he moved home approximately 2 months ago. He reports that he does not follow with anybody here in mental health for help with his anxiety, depression, and bipolar disorder. According to recent records the patient was taking Invega while in the hospital and was discharged with prescription for the same. While in the emergency room, the patient had routine lab work drawn. He was found to have 2 negative troponins. He continued to have chest pain he was nitroglycerin which relieved his chest pain. They did speak to Dr. Noel from Cardiology, who recommended the patient be admitted under observation for nuclear stress test versus invasive cardiac management of his chest pain. PAST MEDICAL HISTORY: Significant for: 1. Hypertension. 2. GERD. 3. Anxiety. 4. Depression. 5. Bipolar. PAST SURGICAL HISTORY: Left shoulder surgery in 1993. HOME MEDICATIONS: Include: 1. Amlodipine 5 mg p.o. daily. The patient reports that he has not taken this med in 2 days. 2. Omeprazole 20 mg p.o. daily. ALLERGIES: No known drug allergies. FAMILY HISTORY: Father with history of bypass at the age 52. Mother with bypass. Grandfather with heart disease and heart attacks. Father with diabetes. No reported history of cancer. SOCIAL HISTORY: The patient is an active smoker. He smokes approximately 5 cigarettes per day down from upwards of 2 packs per day. Reports rare alcohol use. Denies any illicit drug use. The patient reports that he is single and he lives alone. REVIEW OF SYSTEMS: The patient denies any fever, chills, or unintended weight loss. He does report chest pain associated with numbness to bilateral arms, lightheaded, dizziness, as a constant throbbing with associated nausea and hot sweats, relieves with nitro. He denies any cough, hemoptysis, shortness of breath. He does report some nausea. Denies vomiting. No abdominal pain. Denies any gross hematuria, dysuria, focal weakness, sensory loss, visual complaints, dysphagia, arthralgias, myalgias, rashes, lesions, open sores, psychosis or anxiety. PHYSICAL EXAMINATION GENERAL: At this time, Mr. Henderson is alert and oriented, resting on the stretcher in the emergency room. He is in no acute distress. VITAL SIGNS: Blood pressure 118/69, heart rate 69, respirations are 15, O2 saturation is 96%, temperature was 97.7. HEENT: Head is atraumatic, normocephalic. Eyes: EOMs are intact. Sclerae anicteric and not pale. Oral mucosa appeared to be moist. NECK: Supple. LUNGS: Clear to auscultation bilaterally. No wheezes, rales, or rhonchi. CARDIAC: S1, S2. Regular rate and rhythm. No murmurs, rubs, or gallops. ABDOMEN: Soft and nontender. Bowel sounds are present x4. EXTREMITIES: He is able to move all 4 extremities. There is no clubbing or cyanosis. SKIN: Intact. DIAGNOSTIC STUDIES/LAB DATA: CBC was within normal limits. WBCs were 6.0, RBCs 5.19, hemoglobin 15.1, hematocrit was 45, platelet count was 253. Sodium 137, potassium 4.3, chloride 107, carbon dioxide was 25, anion gap was 5, BUN was 15, creatinine 0.74, glucose was 100, lactic acid 0.8, calcium 9.3. ASTs were 89, ALTs were 158, and alkaline phosphatase was 182. Troponin was 0.01, repeat was 0.00. C- reactive protein was 5.10. He had a chest x-ray, radiologist impression: No active cardiopulmonary disease. He had an electrocardiogram, which showed sinus rhythm at a rate of 65. ASSESSMENT AND PLAN: Mr. Henderson is a 49-year-old male with a past medical history significant for hypertension, gastroesophageal reflux disease, anxiety, depression, bipolar disorder, who presented to the emergency room with complaints of chest pain. He will be admitted for: 1. Chest pain. The patient had a recent dobutamine stress echo that was within normal limits. He has had negative troponins x 2. No ST changes on his EKG. The emergency room talked to Dr. Noel, who has recommended a nuclear stress test. I will order a nuclear stress test. The patient will have a third troponin. I will repeat a CBC and BMP in the a.m. He will have a repeat EKG in the a.m. and a nuclear stress test. He will be monitored on telemetry overnight and he can have nitro paste to the chest for chest pain. The patient did receive aspirin 324 mg by EMS. I will continue aspirin 81 mg p.o. daily. I will get a lipid profile. 2. Hypertension. The patient should continue on amlodipine as previously prescribed. 3. Gastroesophageal reflux disease. He should continue on omeprazole 20 mg as previously prescribed. 4. Anxiety, depression, and bipolar. The patient is currently not taking any medications at this time. He does report that he was taking Invega 9 mg 2 month ago but has not had a prescription since he left [place]. Patient then reports that he took Invega briefly while in the hospital and did not continue after discharge. Will need to discuss with psychiatry resuming this medication. 5. DVT prophylaxis. I will place him on Lovenox subcutaneous. Code status. He is a full code 6. FEN. He can have a regular diet. He will be n.p.o. for breakfast. TIME SPENT: Time spent on this admission was 60 minutes, greater than half that time was spent at the bedside reviewing events leading thus far to his hospitalization, performing physical exam, and reviewing my plan of care. I have discussed this with my attending, Dr. Katt Zamora and she is in agreement with my plan. EUFEMIA GLASS, WENDI [id number]/[facility], [place] #: [id number] MEHUL
[2019-07-28] MEDS ORDERED: Ondansetron INJ* 2 MG/ML VIAL IV ONE (00:56)
[2019-07-28] MEDS ORDERED: ALPRAZolam TAB* 0.5 MG PO ONE (02:37)
[2019-07-28 05:10] LABS: ABS Eosinophils 0.2 10^3/ul (0-0.6); ABS Lymphocytes 2.5 10^3/ul (1.0-4.8); ABS Monocytes 0.5 10^3/ul (0-0.8); Eosinophil % 2.7 %; Hematocrit 42 % (42-52); Hemoglobin 14.1 g/dL (14.0-18.0); Lymphocyte % 40.9 %; Mean Corpuscular HGB Conc 34 g/dL (31-36); Mean Corpuscular Hemoglobin 29 pg (27-31); Mean Corpuscular Volume 86 fL (80-94); Mean Platelet Volume 8.9 fL (7.4-10.4); Nucleated Red Blood Cells % 0.3; Platelet Count 239 10^3/uL (150-450); Red Blood Count 4.84 10^6 /uL (4.18-5.48); Red Cell Distribution Width 15 % (10-15); White Blood Count 6.2 10^3/uL (3.5-10.8)
[2019-07-28 05:29] LABS: BUN/Creatinine Ratio 22.9 (8-20); Calcium 8.9 mg/dL (8.6-10.3); EGFR African American 90.1 (>60); EGFR Non-African American 74.5 (>60); HDL Cholesterol 51.5 mg/dL; Potassium 4.4 mmol/L (3.5-5.0)
[2019-07-28] MEDS: amLODIPine TAB* 5 MG PO SCH (08:36)
[2019-07-28] MEDS: Paliperidone ER TAB* 9 MG TAB.ER PO SCH (09:50)
[2019-07-28] MEDS: Pantoprazole TAB * 40 MG TAB PO SCH (09:50)
[2019-07-28] MEDS ORDERED: Aminophylline IV* 25 MG/ML 10 ML VIAL ONE (10:35)
[2019-07-28] MEDS ORDERED: Regadenoson* 0.4 MG/5 ML SYRINGE ONE (10:35)
[2019-07-28] MEDS ORDERED: chlorproMAZINE INJ* 25 MG/ML 2 ML (50 MG) IM PRN (11:26)
--- NOTE | 2019-07-28 12:27 | CONSULT ---
Identification - Patient Identification Reason for Psychiatric Consultation: Homicidal Ideation -: Patient is a 49 year old, M admitted on 07/27/19. - MHU Identification Employment Status: Disabled Hx Psychiatric Hospitalization: Yes History - Objective HPI: Psychiatry is asked to see Mr. Henderson after an episode this morning in the stress test suite in which he appeared to be responding to internal stimuli, talking to unseen persons and making homicidal statements. Staff attempted to calm the patient and clarify his remarks and he admitted homicidality towards them. This led to the cancellation of his stress test for staff and patient safety and he was returned to his room on . His 4th floor RN indicates that he made an aggressive statement towards him as well and indicated that he would attempt to harm any staff that entered his room in the capacity of a 1:1 observer. This patient is known to me for a similar consultation situation on the 4th floor in late June. For a complete psychosocial history, please refer to the psychiatric assessment that I dictated on 07/13/19. On exam, Soren is laying beneath his covers in bed with most of his lower face obscured by his blankets. He denies HI at this time and states "I just got mad down there. They were pulling and poking me." He admits to not following through with picking up his Invega following his discharge from the hospital earlier this month. Nor did he follow up with [facility] as he promised. "I didn't have an appointment." The patient states that he has done well on long-acting injectable paliperidone in the past and he is willing to resume this today. He took oral paliperidone this morning without complaint. Exam Appearance: Obese Hygiene: Normal Grooming: Fairly Well Kept Psychomotor Activities: Abnormal-Decreased Exhibits Abnormal Movement: No Attitude and Relatedness: Cooperative Eye Contact: Fair - Speech Quality: Unpressured Latencies: Long Quantity: Terse Patient's Decription of Mood: "Angry" Observed Affect: Tense Affect Consistent with: Dysphoria Patient's Thought Process: Circumstantial Thought Content: Yes Paranoid Ideation, No Passive Wish, No Suicidal Planning, No Homicidal Ideation Experiencing Hallucinations: No, Sensorium is Clear Type of Hallucinations: Visual: No, Auditory: Yes, Command: No Level of Consciousness: Alert Orientation: Yes Intact, Yes Orientated to Time, Yes Orientated to Place, Yes Orientated to Person Impulse Control: Poor Insight and Judgement: Impaired Impression - Impression Clinical Impression: 49 y.o. single, white male with a history of unspecified psychotic disorder and several previous psychiatric inpatient hospitalizations, both here and in [place], who is admitted on the telemetry unit for chest pain, who subsequently has displayed paranoia, auditory hallucinations, hostility and homicidality directed at staff. Inpatient DSM-V Dx: F29 Merits Inpatient Hospitalization: Yes Plan - Treatment Plan Treatment Plan: The patient warrants inpatient psychiatric treatment, however, we have no available male beds on the [facility] currently. Psychiatry recommends leaving him off 1:1 as he is not a risk to elope or harm himself. Will start Invega Sustena 234mg IM times one and he will need a booster dose of this on Wednesday, July 31. In the meantime, continue Invega oral at 9mg daily. I will sign the case out to my colleague, Dr. Terry Verduzco, for management over the weekend. This provider will return to service on Wednesday, 07/31 and psychiatry will continue to follow. In my experience the patient improves rapidly with antipsychotic resumption. A hard and fast outpatient psychiatric intake at [facility] is essential prior to discharge. Continued Medication Management: Start Medication Medications: Current Medications Acetaminophen (Tylenol Tab*) 650 mg PO Q4H PRN PRN Reason: MILD PAIN or TEMP > 100.4 Al Hydrox/Mg Hydrox/Simethicone (Maalox Plus*) 30 ml PO Q6H PRN PRN Reason: INDIGESTION Amlodipine Besylate (Norvasc Tab*) 5 mg PO DAILY [facility] Last Admin: 07/28/19 08:36 Dose: Not Given Chlorpromazine HCl (Thorazine Inj*) 25 mg IM Q4H PRN PRN Reason: AGITATION Enoxaparin Sodium (Lovenox(*)) 40 mg SUBCUT Q24H [facility] Last Admin: 07/27/19 22:51 Dose: 40 mg Paliperidone (Invega Er Tab*) 9 mg PO DAILY [facility] Last Admin: 07/28/19 09:50 Dose: 9 mg Paliperidone Palmitate (Invega Sustenna*) 234 mg IM ONCE ONE Stop: 07/28/19 11:58 Pantoprazole Sodium (Protonix Tab*) 40 mg PO DAILY [facility] Last Admin: 07/28/19 09:50 Dose: 40 mg - Discharge Plan Discharge Plan: Inpatient Hospitalization
--- NOTE | 2019-07-28 14:01 | PN ---
Subjective Date of Service: 07/28/19 Interval History: Patient states he has continued chest pain, reproducible with palpation, radiating to the right chest and associated with palpitations. Patient denies SOB, N/V, abdominal pain, diarrhea, CP, or other pain. Patient noted to be making threatening statements to staff during stress test causing it to be prematurely terminated. Patient then made threatening statements to staff on the floor. Family History: Unchanged from Admission Social History: Unchanged from Admission Past Medical History: Unchanged from Admission Objective Active Medications: Acetaminophen (Tylenol Tab*) 650 mg PO Q4H PRN PRN Reason: MILD PAIN or TEMP > 100.4 Al Hydrox/Mg Hydrox/Simethicone (Maalox Plus*) 30 ml PO Q6H PRN PRN Reason: INDIGESTION Amlodipine Besylate (Norvasc Tab*) 5 mg PO DAILY [facility] Last Admin: 07/28/19 08:36 Dose: Not Given Atorvastatin Calcium (Lipitor*) 40 mg PO 1700 [facility] Chlorpromazine HCl (Thorazine Inj*) 25 mg IM Q4H PRN PRN Reason: AGITATION Last Admin: 07/28/19 12:50 Dose: 25 mg Enoxaparin Sodium (Lovenox(*)) 40 mg SUBCUT Q24H [facility] Last Admin: 07/27/19 22:51 Dose: 40 mg Paliperidone (Invega Er Tab*) 9 mg PO DAILY [facility] Last Admin: 07/28/19 09:50 Dose: 9 mg Paliperidone Palmitate (Invega Sustenna*) 234 mg IM ONCE ONE Stop: 07/28/19 15:01 Pantoprazole Sodium (Protonix Tab*) 40 mg PO DAILY [facility] Last Admin: 07/28/19 09:50 Dose: 40 mg Vital Signs - 8 hr 07/28/19 07/28/19 07/28/19 06:11 07:39 07:41 Temperature 97.9 F Pulse Rate 60 Respiratory 18 16 14 Rate Blood Pressure 88/51 (mmHg) O2 Sat by Pulse 95 Oximetry 07/28/19 07:48 Temperature Pulse Rate Respiratory Rate Blood Pressure 92/50 (mmHg) O2 Sat by Pulse Oximetry Oxygen Devices in Use Now: None Appearance: Patient is a 49yo male who appears stated age and is sitting in the bed in [facility]. Patient is not markedly disheveled. Eyes: No Scleral Icterus, PERRLA Ears/Nose/Mouth/Throat: NL Teeth, Lips, Gums, Clear Oropharnyx, Mucous Membranes Moist Neck: NL Appearance and Movements; NL JVP, Trachea Midline Respiratory: Symmetrical Chest Expansion and Respiratory Effort, Clear to Auscultation Cardiovascular: NL Sounds; No Murmurs; No JVD, RRR, No Edema, - - Chest Tender to palpation. Abdominal: NL Sounds; No Tenderness; No Distention, No Hepatosplenomegaly Lymphatic: No Cervical Adenopathy Extremities: No Edema, No Clubbing, Cyanosis Skin: No Rash or Ulcers, No Nodules or Sclerosis Neurological: Alert and Oriented x 3, NL Sensation, NL Muscle Strength and Tone , - - CN II-XII intact. Result Diagrams: 07/28/19 04:49 07/28/19 04:49 Assess/Plan/Problems-Billing Assessment: Patient is a 49yo male with a PMH for BPD I, HTN, here with chest pain, likely non-cardiac and homicidal ideation due to being off his medications. - Patient Problems (1) Psychotic disorder Current Visit: No Status: Acute Priority: Medium Comment: - Appreciate Psych consult, Start Invega Sustena - Will need to be here over the weekend for induction doses and no doses on psych - Avoid 1:1 to avoid agitation. (2) Chest pain Current Visit: No Status: Acute Code(s): R07.9 - CHEST PAIN, UNSPECIFIED SNOMED Code(s): 52448305 Comment: - Unclear cause, has had negative CTA, negative stress echo negative troponins and no telemetry abnormalities. - Very unlikely to be life-threatening cause. (3) HTN (hypertension) Current Visit: Yes Status: Acute Code(s): I10 - ESSENTIAL (PRIMARY) HYPERTENSION SNOMED Code(s): 53227960 Comment: - Normotensive, Continue Amlodipine (4) HLD (hyperlipidemia) Current Visit: Yes Status: Acute Code(s): E78.5 - HYPERLIPIDEMIA, UNSPECIFIED SNOMED Code(s): 55421235 Comment: - Hyperlipidemia, Start Lipitor. (5) DVT prophylaxis Current Visit: Yes Status: Acute Code(s): Z29.9 - ENCOUNTER FOR PROPHYLACTIC MEASURES, UNSPECIFIED SNOMED Code(s): 897212425 Comment: - Lovenox SubQ. (6) DNR (do not resuscitate) Current Visit: Yes Status: Acute Status and Disposition: Inpatient for psychiatric stabilization.
[2019-07-28] MEDS ORDERED: Paliperidone SUSTENNA* 234 MG/1.5 ML IM ONE (15:00)
[2019-07-28] MEDS: Atorvastatin* 40 MG TAB PO SCH (18:19)
[2019-07-28] MEDS: Enoxaparin(*) 40 MG/0.4 ML SYR SUBCUT SCH (20:29)
[2019-07-29] MEDS: chlorproMAZINE INJ* 25 MG/ML 2 ML (50 MG) IM PRN ×2 (07:23→23:37)
[2019-07-29] MEDS: Acetaminophen TAB* 325 MG PO PRN (07:24)
[2019-07-29] MEDS ORDERED: Ondansetron INJ* 2 MG/ML VIAL IV PRN (09:50)
[2019-07-29] MEDS: amLODIPine TAB* 5 MG PO SCH (10:50)
[2019-07-29] MEDS: Paliperidone ER TAB* 9 MG TAB.ER PO SCH (10:50)
[2019-07-29] MEDS: Ibuprofen TAB* 400 MG PO PRN (10:51)
[2019-07-29] MEDS: Pantoprazole TAB * 40 MG TAB PO SCH (10:51)
--- NOTE | 2019-07-29 12:30 | PN ---
Subjective Date of Service: 07/29/19 Interval History: Patient still has intermittent chest pain that is still reproducible with palpation and decreased in intensity. Patient denies CP, SOB, dizziness, abdominal pain, diarrhea, dysuria, or other pain. Patient states he feels depressed and that Invega has helped with this in the past. Family History: Unchanged from Admission Social History: Unchanged from Admission Past Medical History: Unchanged from Admission Objective Active Medications: Acetaminophen (Tylenol Tab*) 650 mg PO Q4H PRN PRN Reason: MILD PAIN or TEMP > 100.4 Last Admin: 07/29/19 07:24 Dose: 650 mg Al Hydrox/Mg Hydrox/Simethicone (Maalox Plus*) 30 ml PO Q6H PRN PRN Reason: INDIGESTION Last Admin: 07/29/19 07:07 Dose: 30 ml Amlodipine Besylate (Norvasc Tab*) 5 mg PO DAILY [facility] Last Admin: 07/29/19 10:50 Dose: 5 mg Atorvastatin Calcium (Lipitor*) 40 mg PO 1700 [facility] Last Admin: 07/28/19 18:19 Dose: Not Given Chlorpromazine HCl (Thorazine Inj*) 75 mg IM Q4H PRN PRN Reason: AGITATION Last Admin: 07/29/19 07:23 Dose: 75 mg Enoxaparin Sodium (Lovenox(*)) 40 mg SUBCUT Q24H [facility] Last Admin: 07/28/19 20:29 Dose: 40 mg Ibuprofen (Motrin Tab*) 400 mg PO Q6H PRN PRN Reason: PAIN - MODERATE Last Admin: 07/29/19 10:51 Dose: 400 mg Ondansetron HCl (Zofran Inj*) 4 mg IV Q4H PRN PRN Reason: NAUSEA Last Admin: 07/29/19 10:51 Dose: 4 mg Paliperidone (Invega Er Tab*) 9 mg PO DAILY [facility] Last Admin: 07/29/19 10:50 Dose: 9 mg Pantoprazole Sodium (Protonix Tab*) 40 mg PO DAILY [facility] Last Admin: 07/29/19 10:51 Dose: 40 mg Vital Signs - 8 hr 07/29/19 07:32 Temperature 97.2 F Pulse Rate 70 Respiratory 18 Rate Blood Pressure 140/68 (mmHg) O2 Sat by Pulse 97 Oximetry Oxygen Devices in Use Now: None Appearance: Patient is a 49yo male who appears stated age and is sitting in the bed in NAD. Eyes: No Scleral Icterus, PERRLA Ears/Nose/Mouth/Throat: NL Teeth, Lips, Gums, Clear Oropharnyx, Mucous Membranes Moist Neck: NL Appearance and Movements; NL JVP, Trachea Midline Respiratory: Symmetrical Chest Expansion and Respiratory Effort, Clear to Auscultation Cardiovascular: NL Sounds; No Murmurs; No JVD, RRR, No Edema, - - Point tenderness to palpation over left chest. Abdominal: NL Sounds; No Tenderness; No Distention, No Hepatosplenomegaly Lymphatic: No Cervical Adenopathy Extremities: No Edema, No Clubbing, Cyanosis Skin: No Rash or Ulcers, No Nodules or Sclerosis Neurological: Alert and Oriented x 3, NL Sensation, NL Muscle Strength and Tone , - - CN II-XII intact. Flat Affect. Result Diagrams: 07/28/19 04:49 07/28/19 04:49 Assess/Plan/Problems-Billing Assessment: Patient is a 49yo male with a PMH for BPD I, HTN, here with chest pain, likely non-cardiac and homicidal ideation due to being off his medications. - Patient Problems (1) Psychotic disorder Current Visit: No Status: Acute Priority: Medium Comment: - Appreciate Psych consult, Start Invega Sustena - Will need to be here over the weekend for induction doses and no beds available on psych - Avoid 1:1 to avoid agitation. (2) Chest pain Current Visit: No Status: Acute Code(s): R07.9 - CHEST PAIN, UNSPECIFIED SNOMED Code(s): 24570542 Comment: - Unclear cause, has had negative CTA, negative stress echo negative troponins and no telemetry abnormalities. - Very unlikely to be life-threatening cause. - Treat with tylenol and ibuprofen. (3) HTN (hypertension) Current Visit: Yes Status: Acute Code(s): I10 - ESSENTIAL (PRIMARY) HYPERTENSION SNOMED Code(s): 85807911 Comment: - Normotensive, Continue Amlodipine (4) HLD (hyperlipidemia) Current Visit: Yes Status: Acute Code(s): E78.5 - HYPERLIPIDEMIA, UNSPECIFIED SNOMED Code(s): 69634128 Comment: - Hyperlipidemia, Start Lipitor. (5) DVT prophylaxis Current Visit: Yes Status: Acute Code(s): Z29.9 - ENCOUNTER FOR PROPHYLACTIC MEASURES, UNSPECIFIED SNOMED Code(s): 024614256 Comment: - Lovenox SubQ. (6) DNR (do not resuscitate) Current Visit: Yes Status: Acute Status and Disposition: Inpatient for psychiatric stabilization. Hopeful D/C on Wednesday with close psychiatric F/U.
[2019-07-29] MEDS: Atorvastatin* 40 MG TAB PO SCH (17:04)
[2019-07-29] MEDS: Enoxaparin(*) 40 MG/0.4 ML SYR SUBCUT SCH (20:43)
--- NOTE | 2019-07-30 07:55 | PN ---
Subjective Date of Service: 07/30/19 Interval History: HD 4 on 07/30 49M PMH for BPD I, HTN, here with chest pain, likely non-cardiac (neg stress test) and homicidal ideation due to being off his psychiatric medications. Improved since starting Invega. Overnight, no acute events VSS, mild HTN No labs This morning pt pleasant and cooperative in bed, c/o mild anterior L axilla pain , radiates to shoulder, worse with movement and can be reproduced by moving arm. Otherwise pleasant, tolerating diet and voiding and ambulating normally. Family History: Unchanged from Admission Social History: Unchanged from Admission Past Medical History: Unchanged from Admission Objective Active Medications: Acetaminophen (Tylenol Tab*) 650 mg PO Q4H PRN PRN Reason: MILD PAIN or TEMP > 100.4 Last Admin: 07/29/19 07:24 Dose: 650 mg Al Hydrox/Mg Hydrox/Simethicone (Maalox Plus*) 30 ml PO Q6H PRN PRN Reason: INDIGESTION Last Admin: 07/29/19 07:07 Dose: 30 ml Amlodipine Besylate (Norvasc Tab*) 5 mg PO DAILY [facility] Last Admin: 07/29/19 10:50 Dose: 5 mg Atorvastatin Calcium (Lipitor*) 40 mg PO 1700 [facility] Last Admin: 07/29/19 17:04 Dose: 40 mg Chlorpromazine HCl (Thorazine Inj*) 75 mg IM Q4H PRN PRN Reason: AGITATION Last Admin: 07/29/19 23:37 Dose: 75 mg Enoxaparin Sodium (Lovenox(*)) 40 mg SUBCUT Q24H [facility] Last Admin: 07/29/19 20:43 Dose: 40 mg Ibuprofen (Motrin Tab*) 400 mg PO Q6H PRN PRN Reason: PAIN - MODERATE Last Admin: 07/29/19 10:51 Dose: 400 mg Ondansetron HCl (Zofran Inj*) 4 mg IV Q4H PRN PRN Reason: NAUSEA Last Admin: 07/29/19 10:51 Dose: 4 mg Paliperidone (Invega Er Tab*) 9 mg PO DAILY [facility] Last Admin: 07/29/19 10:50 Dose: 9 mg Pantoprazole Sodium (Protonix Tab*) 40 mg PO DAILY [facility] Last Admin: 07/29/19 10:51 Dose: 40 mg Oxygen Devices in Use Now: None Appearance: Calm cooperative man in NAD Eyes: No Scleral Icterus, PERRLA Ears/Nose/Mouth/Throat: NL Teeth, Lips, Gums, Clear Oropharnyx Neck: NL Appearance and Movements; NL JVP Respiratory: Symmetrical Chest Expansion and Respiratory Effort, Clear to Auscultation Cardiovascular: NL Sounds; No Murmurs; No JVD, RRR Abdominal: NL Sounds; No Tenderness; No Distention, No Hepatosplenomegaly, - - Obesity Lymphatic: No Cervical Adenopathy Extremities: No Edema Skin: No Rash or Ulcers Neurological: Alert and Oriented x 3 Result Diagrams: 07/28/19 04:49 07/28/19 04:49 Assess/Plan/Problems-Billing Assessment: 49M PMH for BPD I, HTN, here with chest pain, likely non-cardiac (neg stress test) and homicidal ideation due to being off his psychiatric medications. Improved since starting Invega. - Patient Problems (1) Chest pain Current Visit: No Status: Acute Code(s): R07.9 - CHEST PAIN, UNSPECIFIED SNOMED Code(s): 02870658 Comment: - Today reproducible, likely MSK possible tendonitis. - Negative CTA, negative stress echo, negative troponins, and no telemetry abnormalities. - Very unlikely to be life-threatening cause. - Treat with tylenol and ibuprofen and lidocaine patch. (2) HLD (hyperlipidemia) Current Visit: Yes Status: Acute Code(s): E78.5 - HYPERLIPIDEMIA, UNSPECIFIED SNOMED Code(s): 09002780 Comment: - Started Lipitor (3) HTN (hypertension) Current Visit: Yes Status: Acute Code(s): I10 - ESSENTIAL (PRIMARY) HYPERTENSION SNOMED Code(s): 01133661 Comment: - Normotensive, Continue Amlodipine (4) Psychotic disorder Current Visit: No Status: Acute Priority: Medium Comment: - Appreciate Psych consult, Start Invega Sustena on 07/18 - On PRN ER Invega and PRN thorazine IV - Will need to be here over the weekend for induction doses and no beds available on psych - Avoid 1:1 to avoid agitation. - Possibly able to d/c on Wednesday will need CLEAR list of psych meds from psychiatry (5) DVT prophylaxis Current Visit: Yes Status: Acute Code(s): Z29.9 - ENCOUNTER FOR PROPHYLACTIC MEASURES, UNSPECIFIED SNOMED Code(s): 530184361 Comment: - Lovenox SubQ. (6) DNR (do not resuscitate) Current Visit: Yes Status: Acute Status and Disposition: Inpatient for psychiatric stabilization. Hopeful D/C on Wednesday with close psychiatric F/U.
[2019-07-30] MEDS: Pantoprazole TAB * 40 MG TAB PO SCH (09:13)
[2019-07-30] MEDS: amLODIPine TAB* 5 MG PO SCH (09:13)
[2019-07-30] MEDS: Acetaminophen TAB* 325 MG PO PRN ×2 (09:14→16:06)
[2019-07-30] MEDS: Paliperidone ER TAB* 9 MG TAB.ER PO SCH (10:32)
[2019-07-30] MEDS: Atorvastatin* 40 MG TAB PO SCH (16:06)
[2019-07-30] MEDS: Lidocaine PATCH 5%* 1 PATCH TRANSDERM SCH (16:10)
[2019-07-30] MEDS: Enoxaparin(*) 40 MG/0.4 ML SYR SUBCUT SCH (20:15)
[2019-07-30 20:45] VITALS: BP 143/93
[2019-07-30] MEDS ORDERED: Lidocaine Patch REMOVE* 1 NOTE MISC SCH (21:00)
[2019-07-30] MEDS: Ibuprofen TAB* 400 MG PO PRN (22:07)
[2019-07-31] MEDS: Acetaminophen TAB* 325 MG PO PRN (00:24)
[2019-07-31] MEDS: Paliperidone ER TAB* 9 MG TAB.ER PO SCH (08:43)
[2019-07-31] MEDS: Lidocaine PATCH 5%* 1 PATCH TRANSDERM SCH (08:43)
[2019-07-31] MEDS: Ibuprofen TAB* 400 MG PO PRN (08:44)
[2019-07-31] MEDS: amLODIPine TAB* 5 MG PO SCH (08:44)
[2019-07-31] MEDS: Pantoprazole TAB * 40 MG TAB PO SCH (08:44)
[2019-07-31] MEDS: chlorproMAZINE INJ* 25 MG/ML 2 ML (50 MG) IM PRN (08:50)
[2019-07-31] MEDS ORDERED: Paliperidone SUSTENNA* 156 MG/1 ML IM ONE (09:04)
--- NOTE | 2019-07-31 10:30 | CONSULT ---
Identification - Patient Identification Reason for Psychiatric Consultation: Homicidal Ideation -: Patient is a 49 year old, M admitted on 07/28/19. - MHU Identification Employment Status: Disabled Hx Psychiatric Hospitalization: Yes History - Objective HPI: Psychiatry followed up with Soren this morning on . He was under behavioral control over the weekend and continues to deny HI. The patient tolerated the loading dose of Invega Sustena well and received the booster dose of 156mg IM this morning with no complaints. He is mostly fixated on returning to his room at the [facility]. I called the clinic charge nurse at [facility], Senait Argueta, to notify her that Soren will be due for his next shot of Invega on August 28. She advised me to have the child daycare worker call their office to make an appointment, which I did. Soren expresses agreement with outpatient psychiatric follow up. Exam Appearance: Obese Hygiene: Normal Grooming: Fairly Well Kept Psychomotor Activities: Abnormal-Decreased Exhibits Abnormal Movement: No Attitude and Relatedness: Cooperative Eye Contact: Fair - Speech Quality: Unpressured Latencies: Long Quantity: Terse Patient's Decription of Mood: "Good" Observed Affect: Fair Affect Consistent with: Dysphoria Patient's Thought Process: Circumstantial Thought Content: No Passive Wish, No Suicidal Planning, No Homicidal Ideation, No Paranoid Ideation Experiencing Hallucinations: No, Sensorium is Clear Type of Hallucinations: Visual: No, Auditory: Yes, Command: No Level of Consciousness: Alert Orientation: Yes Intact, Yes Orientated to Time, Yes Orientated to Place, Yes Orientated to Person Impulse Control: Poor Insight and Judgement: Impaired Impression - Impression Clinical Impression: 49 y.o. single, white male with a history of unspecified psychotic disorder and several previous psychiatric inpatient hospitalizations, both here and in [place], who is admitted on the telemetry unit for chest pain, who subsequently has displayed paranoia, auditory hallucinations, hostility and homicidality directed at staff. Inpatient DSM-V Dx: F29 Merits Inpatient Hospitalization: No Plan - Treatment Plan Treatment Plan: The patient has improved with resumption of antipsychotic therapy and is no longer endorsing thoughts of harming others. He is psychiatrically cleared for discharge from the hospital and f/u treatment should be made with [facility] clinic. His next dose of Invega Sustenna 234mg IM q4wks is due on 08/28/19. His oral antipsychotics may be discontinued at this time. Psychiatry is signing off. Continued Medication Management: Start Medication Medications: Current Medications Acetaminophen (Tylenol Tab*) 650 mg PO Q4H PRN PRN Reason: MILD PAIN or TEMP > 100.4 Last Admin: 07/31/19 00:24 Dose: 650 mg Al Hydrox/Mg Hydrox/Simethicone (Maalox Plus*) 30 ml PO Q6H PRN PRN Reason: INDIGESTION Last Admin: 07/29/19 07:07 Dose: 30 ml Amlodipine Besylate (Norvasc Tab*) 5 mg PO DAILY [facility] Last Admin: 07/31/19 08:44 Dose: 5 mg Atorvastatin Calcium (Lipitor*) 40 mg PO 1700 [facility] Last Admin: 07/30/19 16:06 Dose: 40 mg Chlorpromazine HCl (Thorazine Inj*) 75 mg IM Q4H PRN PRN Reason: AGITATION Last Admin: 07/31/19 08:50 Dose: 75 mg Enoxaparin Sodium (Lovenox(*)) 40 mg SUBCUT Q24H [facility] Last Admin: 07/30/19 20:15 Dose: 40 mg Ibuprofen (Motrin Tab*) 400 mg PO Q6H PRN PRN Reason: PAIN - MODERATE Last Admin: 07/31/19 08:44 Dose: 400 mg Lidocaine (Lidoderm 5% Patch*) 1 patch TRANSDERM DAILY [facility] Last Admin: 07/31/19 08:43 Dose: 1 patch Ondansetron HCl (Zofran Inj*) 4 mg IV Q4H PRN PRN Reason: NAUSEA Last Admin: 07/29/19 10:51 Dose: 4 mg Paliperidone (Invega Er Tab*) 9 mg PO DAILY [facility] Last Admin: 07/31/19 08:43 Dose: 9 mg Pantoprazole Sodium (Protonix Tab*) 40 mg PO DAILY [facility] Last Admin: 07/31/19 08:44 Dose: 40 mg Pharmacy Profile Note (Lidocaine Patch Remove*) 1 note N/A 2100 [facility] Last Admin: 07/30/19 20:16 Dose: 1 note - Discharge Plan Discharge Plan: Outpatient Follow Up Outpatient Program: [facility]
--- NOTE | 2019-08-01 00:20 | DS ---
CC: [facility], Dr. Norberto Wagner; Dr. Garcia, [facility] * DISCHARGE SUMMARY: DATE OF ADMISSION: 07/27/19 DATE OF DISCHARGE: 07/31/19 PRIMARY DIAGNOSIS: Exacerbation of bipolar disorder with delusions and auditory hallucinations. SECONDARY DIAGNOSES: 1. Non-cardiac chest pain. 2. Cholelithiasis. 3. Hypertension. 4. Hyperlipidemia. 5. Gastroesophageal reflux disease. 6. Anxiety. MEDICATIONS ON DISCHARGE: 1. Amlodipine 5 mg p.o. q. day. 2. Omeprazole 40 mg p.o. q. day. 3. Acetaminophen as needed. 4. Maalox as needed. 5. Atorvastatin 40 mg p.o. q.p.m. 6. Ibuprofen 400 mg p.o. q.6 hours p.r.n. arthritis pain. 7. Lidocaine patch topically to areas of chest wall p.r.n. pain. 8. Ondansetron 4 mg p.o. q.6 hours p.r.n. nausea. 9. Invega ER 9 mg p.o. q. day. 10. Invega Sustenna 234 mg IM every 4 weeks, next dose due 08/27/19. HOSPITAL COURSE: A 49-year-old man, who recently moved here from [place], presented to the hospital with chest pain. Please see the admission history and physical and consultations related to this case as this discharge summary is a summarization of a complex medical stay. The patient's chest pain was investigated with right upper quadrant ultrasound that showed cholelithiasis without findings of cholecystitis. There was also hepatic steatosis and right nephrolithiasis. The patient had an exercise nuclear stress test on 07/28/19. During the stress test, he expressed anger and homicidal ideation towards the staff and the stress test. The patient's stress test was canceled and he was moved back to [address] [place] [address]. The patient was also expressing homicidal ideation towards people coming to his room, especially a one-to-one observer. Psychiatric consultation was obtained with Dr. Roque. He stated that he also met the patient in late June with a similar presentation. Chronically, the patient is not compliant with his oral Invega and has failed to make contact with [facility] after his discharge on 07/14/19. Dr. Roque suggested that the patient would be better managed on the psychiatric floor after his cardiac situation was ruled out, but no beds were available. The patient was given IM Invega as well as restarted on oral Invega and Dr. Roque reassessed the patient on 07/31/19, the day of discharge. He feels the patient is not a risk to himself or others in the immediate sense and is stable for discharge and followup at [facility]. Repeat Invega injection should be given on 08/27/19. The patient did complete the stress test and this showed no ischemia and normal left ventricular perfusion. Other laboratory studies during the hospital stay included a normal CBC, troponin negative x3 with mildly elevated liver enzymes with AST of 89, ALT of 158, and alkaline phosphatase of 182. Total cholesterol is 202, LDL is 132. Hepatitis A, B, and C serologies are negative. On the day of discharge, the patient continued interpreting sounds in the unit as people talking about him on his back. He has delusional belief about people as well who are making plans about him and he was very focused on his hotel room where he is staying. He is staying at the [facility] on [facility] and we called the hotel to make sure his room was still available for him there. When the patient was getting ready for discharge, he elected to leave without collecting his discharge paperwork. He also expressed ambivalence about going to [facility] or to primary care. In any case, attempts should be made to reach out to him and get him into see outpatient mental health and outpatient primary care. STATUS: Inpatient. CONDITION: Improved. DIET: Low salt and low fat. ACTIVITY: As tolerated. DISPOSITION: Home. He is living at the moment at [facility]. FOLLOWUP: Follow up in 1 week with [facility] and 1 or 2 weeks with [facility]. TIME SPENT: I spent more than 40 minutes with the patient on the day of discharge including [id number] time and completing necessary paperwork. [id number]/[facility] #: [id number] MEHUL
== END 2019-07-31 11:43 | disposition home or self-care (01) | DRG 203 ==
LOC: ED 16:31 → MEDTELE 20:53 → OBSVTOIN 07-28 16:00
PROVIDERS: ADMIT Student in an Organized Health Care Education/Training Program; ATTEND Internal Medicine
DX: R07.89 Other chest pain (principal); F31.60 Bipolar disorder, current episode mixed, unspecified; K80.20 Calculus of gallbladder without cholecystitis without obstruction; I10 Essential (primary) hypertension; E78.5 Hyperlipidemia, unspecified; K21.9 Gastro-esophageal reflux disease without esophagitis; F41.9 Anxiety disorder, unspecified; K76.0 Fatty (change of) liver, not elsewhere classified; N20.0 Calculus of kidney; Z66 Do not resuscitate; R45.850 Homicidal ideations; F29 Unspecified psychosis not due to a substance or known physiological condition; E66.9 Obesity, unspecified; F17.210 Nicotine dependence, cigarettes, uncomplicated; Z79.899 Other long term (current) drug therapy; Z82.49 Family history of ischemic heart disease and other diseases of the circulatory system; Z83.3 Family history of diabetes mellitus; Z68.37 Body mass index [BMI] 37.0-37.9, adult
CPT/HCPCS: 36415; 71045; 76705; 78451; 80048; 80053; 80061; 80074; 83605; 84484; 85025; 86140; 93005; 99284; A9270-GY; A9502; J0280; J1650; J2405; J2426; J2785; J3490

== ENCOUNTER 2019-07-31 18:41 | Emergency (ER) | payer MEDICAID ==
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
[2019-07-31 19:19] LABS: ABS Eosinophils 0.1 10^3/ul (0-0.6); ABS Lymphocytes 1.9 10^3/ul (1.0-4.8); ABS Monocytes 0.6 10^3/ul (0-0.8); ABS Neutrophils 6.3 10^3/ul (1.5-7.7); Eosinophil % 0.9 %; Hematocrit 40 % (42-52); Hemoglobin 14.1 g/dL (14.0-18.0); Lymphocyte % 21.3 %; Mean Corpuscular HGB Conc 35 g/dL (31-36); Mean Corpuscular Hemoglobin 30 pg (27-31); Mean Corpuscular Volume 86 fL (80-94); Mean Platelet Volume 9.1 fL (7.4-10.4); Platelet Count 192 10^3/uL (150-450); Red Blood Count 4.71 10^6 /uL (4.18-5.48); Red Cell Distribution Width 14 % (10-15); White Blood Count 8.8 10^3/uL (3.5-10.8)
--- OUTSIDE RECORDS SUMMARY | 2019-07-31 19:26 | XMS REPORT | Continuity of Care Document ---
:1970 External Reference #:[id number] Author Name Margie Colindres M.D. (transmitted by agent of provider Claudia Gallardo) Address [address] [place] [address] [address] [place] [address] Care Team Providers Name Role Phone Guille Funk M.D. - Emergency Care Team Information Hardwood Floor Installer [phone] Medicine Problems Description No Information Available Social History Type Date Description Comments Sex Unknown Allergies, Adverse Reactions, Alerts Description No Information Available Medications Description No Information Available Immunizations Description No Information Available Vital Signs Description No Information Available Results Description No Information Available Procedures Description No Information Available Medical Devices Description No Information Available Encounters Type Date Location Provider Dx Diagnosis Office Visit 07/14/2019 [facility] Tony Nails, R07.9 Chest pain, 11:28a Assoc,pc [place] unspecified Hospitalists B34.9 Viral infection, unspecified R74.0 Nonspec elev of levels of transamns & lactic acid dehydrgnse I10 Essential (primary) hypertension K21.9 Gastro-esophageal reflux disease without esophagitis Office Visit 07/13/2019 11:28a [facility] Margaux R07.9 Chest pain, Assoc,pc Heaven Juarez, unspecified Hospitalists [employer]BOUND TELEMARKETER R74.0 Nonspec elev of levels of transamns & lactic acid dehydrgnse R11.0 Nausea Z86.59 Personal history of other mental and behavioral disorders Assessments Date Code Description Provider 07/14/2019 R07.9 Chest pain, unspecified LUIS F Bowser 07/14/2019 B34.9 Viral infection, unspecified LUIS F Bowser 07/14/2019 R74.0 Nonspecific elevation of levels of LUIS F Bowser transaminase and lactic acid dehydrogenase [LDH] 07/14/2019 I10 Essential (primary) hypertension LUIS F Bowser 07/14/2019 K21.9 Gastro-esophageal reflux disease without LUIS F Bowser esophagitis 07/13/2019 R07.9 Chest pain, unspecified Margaux [place] Juarez OUTBOUND TELEMARKETER 07/13/2019 R74.0 Nonspecific elevation of levels of Margaux Juarez NP transaminase and lactic acid dehydrogenase [LDH] 07/13/2019 R11.0 Nausea Margaux Juarez NP 07/13/2019 Z86.59 Personal history of other mental and Margaux Juarez NP behavioral disorders Plan of Treatment No Information Available Functional Status Description No Information Available Mental Status Description No Information Available Referrals Description No Information Available
[2019-07-31 19:35] LABS: Albumin 4.1 g/dL (3.2-5.2); Albumin/Globulin Ratio 1.5 (1-3); C Reactive Protein 2.81 mg/L (<8.01); Calcium 9.1 mg/dL (8.6-10.3); EGFR African American 128.9 (>60); EGFR Non-African American 106.5 (>60); Globulin 2.8 g/dL (2-4); Potassium 3.9 mmol/L (3.5-5.0); Total Bilirubin 0.3 mg/dL (0.2-1.0); Total Protein 6.9 g/dL (6.4-8.9)
[2019-07-31 19:40] LABS: INR 0.96 (0.82-1.09)
[2019-07-31 20:58] LABS: Troponin I 0.01 ng/mL (<0.04)
[2019-07-31 22:19] VITALS: BP 145/97
== END 2019-07-31 22:36 | disposition home or self-care (01) ==
LOC: ED 18:41
DX: R07.89 Other chest pain (principal); R06.02 Shortness of breath; R19.5 Other fecal abnormalities; R00.0 Tachycardia, unspecified; Z82.49 Family history of ischemic heart disease and other diseases of the circulatory system; Z83.3 Family history of diabetes mellitus; F17.210 Nicotine dependence, cigarettes, uncomplicated
CPT/HCPCS: 36415; 80053; 82270; 84484; 85025; 85610; 86140; 93005; 99283

== ENCOUNTER 2019-08-09 18:38 | Inpatient (IN) | payer MEDICAID ==
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
[2019-08-09 20:13] LABS: INR 0.91 (0.82-1.09)
[2019-08-09 20:27] LABS: Troponin I 0.01 ng/mL (<0.03)
[2019-08-09 21:01] LABS: ABS Basophils 0.1 10^3/ul (0-0.2); ABS Eosinophils 0.2 10^3/ul (0-0.6); ABS Monocytes 0.7 10^3/ul (0-0.8); ABS Neutrophils 6.2 10^3/ul (1.5-7.7); Eosinophil % 1.7 %; Hematocrit 43 % (42-52); Hemoglobin 14.9 g/dL (14.0-18.0); Lymphocyte % 29.6 %; Mean Corpuscular HGB Conc 35 g/dL (31-36); Mean Corpuscular Hemoglobin 30 pg (27-31); Mean Corpuscular Volume 86 fL (80-94); Mean Platelet Volume 9.6 fL (7.4-10.4); Nucleated Red Blood Cells % 0.2; Platelet Count 279 10^3/uL (150-450); Red Blood Count 4.96 10^6 /uL (4.18-5.48); Red Cell Distribution Width 15 % (10-15); White Blood Count 10.1 10^3/uL (3.5-10.8)
[2019-08-09 21:14] LABS: ALT 22 U/L (7-52); Albumin 3.9 g/dL (3.2-5.2); Albumin/Globulin Ratio 1.4 (1-3); Alkaline Phosphatase 101 U/L (34-104); BUN/Creatinine Ratio 14.9 (8-20); Blood Urea Nitrogen 14 mg/dL (6-24); CO2 Carbon Dioxide 21 mmol/L (22-32); Calcium 9.3 mg/dL (8.6-10.3); Chloride 104 mmol/L (101-111); EGFR African American 102.4 (>60); EGFR Non-African American 84.6 (>60); Globulin 2.8 g/dL (2-4); Glucose 99 mg/dL (70-100); Sodium 137 mmol/L (135-145); Total Protein 6.7 g/dL (6.4-8.9)
[2019-08-09 21:23] LABS: Alcohol < 10 mg/dL (<10)
[2019-08-09 21:38] LABS: TSH (Thyroid Stimulating Horm) 1.14 mcIU/mL (0.34-5.60)
[2019-08-09 21:58] LABS: Anion Gap 12 mmol/L (2-11)
[2019-08-09] MEDS ORDERED: LORazepam TAB(*) 1 MG PO ONE (22:02)
[2019-08-09 22:37] LABS: Urine Benzodiazepine Screen None Detected (None Detect); Urine Opiates Screen None Detected (None Detect)
[2019-08-10] MEDS ORDERED: Al Hydrox/Mg Hydrox/Simet LIQ* 30 ML UDC PO PRN (01:34)
[2019-08-10] MEDS: Vitamin THERAPEUTIC TAB PO SCH (12:48)
[2019-08-10] MEDS: Nicotine PATCH 21 MG/24 HR* PATCH TRANSDERM SCH (12:48)
[2019-08-10] MEDS: Nicotine Patch Removal NOTE PATCH OFF SCH (19:26)
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
[2019-08-11] MEDS: Vitamin THERAPEUTIC TAB PO SCH (08:56)
[2019-08-11] MEDS: Nicotine PATCH 21 MG/24 HR* PATCH TRANSDERM SCH (08:56)
[2019-08-11] MEDS ORDERED: Haloperidol TAB* 5 MG PO PRN (11:45)
[2019-08-11] MEDS ORDERED: Ondansetron ODT TAB* 4 MG PO PRN (13:23)
--- NOTE | 2019-08-11 13:44 | PN ---
Subjective - Subjective Date of Service: 08/11/19 Service Type: 36739 Hosp care 25 min moderate complexity Subjective: Patient is disheveled, seclusive except for meals. He reports hearing people talk about him wasting his life and being "a piece of shit." He is sleeping upon approach and does not answer verbal prompts. Nursing obtained medication list from [facility] and was noted to have an Rx for oral paliperidone 9mg po daily that he has never filled. He is inconsistent in picking the following medications: amlodipine 5mg daily, lisinopril 40mg daily, omeprazole 40mg daily, ondansetron 4mg q6h prn, and above mentioned paliperidone. According to EMR, he had Invega sustenna IM on 07/31 but this and his outpatient providers will need to be clarified after holiday weekend. Objective - General Observations Appearance: Disheveled Stature: Overweight Posture: Slumped Eye Contact: Avoidant Behavior/Activity: Slowed, Peculiar - Interaction Observations Attitude Towards Examiner: Evasive, Mistrustful Stated Mood: Dysphoric Affect: Blunted Speech Pattern/Tone: Quiet Volume Thought Process: Disorganized, Impoverished Perception: WNL Thought Content: Paranoid Thought Process: Lethality: Paranoid Ideation Hallucination Type: Auditory Delusion Type: Persecution - Cognitive Function Orientation: A&O x 4 Level of Consciousness: Alert Cognition: Impaired Attention/Concentration Estimated Intelligence: Normal Insight: Difficulty Acknowledging Presence of Psyciatric Problems Judgment Within Normal Limits: No Ability to Make Reasonable Decisions: Serverely Impaired - Medication Compliance Cooperative with Inpatient Medication Regimen: Partial - Group Participation Participates in Group Activities: No Assessment - Assessment Merits Inpatient Hospitalization: For Immediate Safety, For Stabilization Inpatient DSM-V Dx: F20.9 Clinical Impression: 49yo wm with lifelong history of mental illness and multiple psychiatric hospitalizations who presented to the ED with chest pain and delusional thought processes, command hallucinations, and suicidal and homicidal ideations. He merits hospitalization for immediate safety and stabilization. Plan - Plan Treatment Plan: Name: CONSUELO JUDGE Birthdate: 1970 [id number] continue acute intensive psychiatric treatment. resume known outpatient medications: amlodipine, pantoprazole as formulary sub for omeprazole, lisinopril, and oral paliperidone. add lorazepam and haloperidol prn for anxiety and agitation. obtain collateral from outpatient providers for treatment planning. Continued Medication Management: Continue Outpt Medication Medications: Current Medications Acetaminophen (Tylenol Tab*) 650 mg PO Q4H PRN PRN Reason: PAIN or TEMP > 101 F Al Hydrox/Mg Hydrox/Simethicone (Maalox Plus*) 30 ml PO Q4H PRN PRN Reason: INDIGESTION Amlodipine Besylate (Norvasc Tab*) 5 mg PO DAILY [facility] Atorvastatin Calcium (Lipitor*) 40 mg PO DAILY [facility] Haloperidol (Haldol Tab*) 5 mg PO Q6H PRN PRN Reason: AGITATION Lorazepam (Ativan Tab(*)) 2 mg PO Q6H PRN PRN Reason: Anxiety/agitation Multivitamins (Theragran Tab*) 1 tab PO DAILY [facility] Last Admin: 08/11/19 08:56 Dose: Not Given Nicotine (Nicotine Patch 21 Mg/24 Hr*) 1 patch TRANSDERM DAILY [facility] Last Admin: 08/11/19 08:56 Dose: Not Given Nicotine Polacrilex (Nicotine Gum*) 2 mg PO Q2H PRN PRN Reason: CRAVINGS Ondansetron HCl (Zofran Odt Tab*) 4 mg PO Q6H PRN PRN Reason: NAUSEA/VOMITING Paliperidone (Invega Er Tab*) 9 mg PO BEDTIME [facility] Pantoprazole Sodium (Protonix Tab*) 40 mg PO DAILY [facility] Pharmacy Profile Note (Nicotine Patch Removal Note*) 1 note PATCH OFF 2100 [facility] Last Admin: 08/10/19 19:26 Dose: Not Given - Discharge Plan Discharge Plan: Inpatient Hospitalization Outpatient Program: to be determined
[2019-08-11] MEDS: amLODIPine TAB* 5 MG PO SCH (15:05)
[2019-08-11] MEDS: chlorproMAZINE TAB* 50 MG PO PRN (15:05)
[2019-08-11] MEDS: Pantoprazole TAB * 40 MG TAB PO SCH (15:05)
[2019-08-11] MEDS: Atorvastatin* 40 MG TAB PO SCH (15:08)
[2019-08-11] MEDS: Paliperidone ER TAB* 9 MG TAB.ER PO SCH (20:08)
[2019-08-11] MEDS: Nicotine* 2MG (FRUIT FLAVOR) GUM PO PRN (20:08)
[2019-08-11] MEDS: Nicotine Patch Removal NOTE PATCH OFF SCH (20:15)
[2019-08-12 06:43] LABS: HDL Cholesterol 42.3 mg/dL
[2019-08-12] MEDS: Atorvastatin* 40 MG TAB PO SCH (10:38)
[2019-08-12] MEDS: amLODIPine TAB* 5 MG PO SCH (10:38)
[2019-08-12] MEDS: Vitamin THERAPEUTIC TAB PO SCH (10:38)
[2019-08-12] MEDS: Nicotine PATCH 21 MG/24 HR* PATCH TRANSDERM SCH (10:38)
[2019-08-12] MEDS: Pantoprazole TAB * 40 MG TAB PO SCH (10:38)
[2019-08-12] MEDS: Acetaminophen TAB* 325 MG PO PRN (10:45)
[2019-08-12] MEDS: chlorproMAZINE TAB* 50 MG PO PRN (17:08)
[2019-08-12] MEDS: Nicotine Patch Removal NOTE PATCH OFF SCH (19:15)
[2019-08-12] MEDS: Paliperidone ER TAB* 9 MG TAB.ER PO SCH (21:10)
[2019-08-13] MEDS: Atorvastatin* 40 MG TAB PO SCH (10:00)
[2019-08-13] MEDS: amLODIPine TAB* 5 MG PO SCH (10:00)
[2019-08-13] MEDS: chlorproMAZINE TAB* 50 MG PO PRN (10:00)
[2019-08-13] MEDS: LORazepam TAB(*) 1 MG PO PRN (10:00)
[2019-08-13] MEDS: Pantoprazole TAB * 40 MG TAB PO SCH (10:01)
[2019-08-13] MEDS: Nicotine* 2MG (FRUIT FLAVOR) GUM PO PRN ×2 (10:01→19:18)
[2019-08-13] MEDS: Vitamin THERAPEUTIC TAB PO SCH (10:01)
[2019-08-13] MEDS: Nicotine PATCH 21 MG/24 HR* PATCH TRANSDERM SCH (10:02)
[2019-08-13] MEDS: Paliperidone ER TAB* 9 MG TAB.ER PO SCH (19:18)
[2019-08-13] MEDS: Nicotine Patch Removal NOTE PATCH OFF SCH (19:18)
[2019-08-14] MEDS: Nicotine* 2MG (FRUIT FLAVOR) GUM PO PRN (09:51)
[2019-08-14] MEDS: Vitamin THERAPEUTIC TAB PO SCH (09:51)
[2019-08-14] MEDS: Atorvastatin* 40 MG TAB PO SCH (09:51)
[2019-08-14] MEDS: Pantoprazole TAB * 40 MG TAB PO SCH (09:51)
[2019-08-14] MEDS: amLODIPine TAB* 5 MG PO SCH (09:51)
[2019-08-14] MEDS: Nicotine PATCH 21 MG/24 HR* PATCH TRANSDERM SCH (09:52)
[2019-08-14] MEDS: chlorproMAZINE TAB* 100 MG PO PRN ×2 (10:58→17:25)
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
[2019-08-14] MEDS: LORazepam TAB(*) 1 MG PO PRN (19:18)
[2019-08-14] MEDS: Paliperidone ER TAB* 9 MG TAB.ER PO SCH (21:20)
[2019-08-14] MEDS: Nicotine Patch Removal NOTE PATCH OFF SCH (21:20)
[2019-08-15] MEDS: Vitamin THERAPEUTIC TAB PO SCH (09:42)
[2019-08-15] MEDS: Pantoprazole TAB * 40 MG TAB PO SCH (09:42)
[2019-08-15] MEDS: Atorvastatin* 40 MG TAB PO SCH (09:42)
[2019-08-15] MEDS: amLODIPine TAB* 5 MG PO SCH (09:42)
[2019-08-15] MEDS: chlorproMAZINE TAB* 100 MG PO PRN ×2 (09:43→15:57)
--- OUTSIDE RECORDS SUMMARY | 2019-08-15 14:15 | XMS REPORT | Continuity of Care Document ---
:1970 External Reference #:[id number] Author Name Kenyasherry Senior, DO Address [address] [place] [address] Care Team Providers Name Role Phone Guille Funk M.D. - Emergency Care Team Information System Configuration Specialist Medicine Problems Description No Information Available Social History Type Date Description Comments Sex Unknown Allergies, Adverse Reactions, Alerts Description No Information Available Medications Description No Information Available Immunizations Description No Information Available Vital Signs Description No Information Available Results Description No Information Available Procedures Date Code Description Status 07/13/2019 34764 Use Of ECHO Contrast Agent During Stress ECHO Completed 07/13/2019 05552 Stress ECHO Interpretation/Report Hospital Completed 07/13/2019 80573 Treadmill Interp/Report Only Completed 07/13/2019 05464 Stress Test Supervsn W/Out I/R Completed Medical Devices Description No Information Available Encounters Type Date Location Provider Dx Diagnosis Office Visit 07/31/2019 [facility] Judson Tovar F31.9 Bipolar disorder , 9:26a Assoc,pc Jesus Britt,FACP unspecified Hospitalists 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 R07.9 Chest pain, unspecified K80.80 Other cholelithiasis without obstruction I10 Essential (primary) hypertension E78.5 Hyperlipidemia, unspecified K21.9 Gastro-esophageal reflux disease without esophagitis F41.9 Anxiety disorder, unspecified Office Visit 07/30/2019 7:25p [facility] Erin Blandon R07.9 Chest pain, Assoc,magan BARRERA unspecified Hospitalists E78.5 Hyperlipidemia, unspecified I10 Essential (primary) hypertension F29 Unsp psychosis not due to a substance or known physiol cond Office Visit 07/29/2019 9:25a [facility] Tony R07.9 Chest pain, Assoc,pc Jesu, PA unspecified Hospitalists I10 Essential (primary) hypertension E78.5 Hyperlipidemia, unspecified Office Visit 07/28/2019 9:24a [facility] Tnoy R07.9 Chest pain, Assoc,pc Jesu, PA unspecified Hospitalists I10 Essential (primary) hypertension E78.5 Hyperlipidemia, unspecified Office Visit 07/27/2019 [facility] Eufemia R07.9 Chest pain, 9:24a Assoc,pc Quan, INSTRUMENTATION CHEMIST unspecified Hospitalists I10 Essential (primary) hypertension K21.9 Gastro-esophageal reflux disease without esophagitis F41.9 Anxiety disorder, unspecified F31.9 Bipolar disorder, unspecified Office Visit 07/14/2019 11:28a [facility] Tony R07.9 Chest pain, Assoc,pc Jesu, PA unspecified Hospitalists B34.9 Viral infection, unspecified R74.0 Nonspec elev of levels of transamns & lactic acid dehydrgnse I10 Essential (primary) hypertension K21.9 Gastro-esophageal reflux disease without esophagitis Office Visit 07/13/2019 11:28a [facility] Margaux R07.9 Chest pain, Assoc,pc Heaven Juarez, unspecified Hospitalists INSTRUMENTATION CHEMIST R74.0 Nonspec elev of levels of transamns & lactic acid dehydrgnse R11.0 Nausea Z86.59 Personal history of other mental and behavioral disorders Assessments Date Code Description Provider 07/31/2019 F31.9 Bipolar disorder, unspecified Judson Britt M.D.,FACP 07/31/2019 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.,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 07/31/2019 R07.9 Chest pain, unspecified Judson Britt M.D.,FACP 07/31/2019 K80.80 Other cholelithiasis without Judson Britt M.D.,FACP obstruction 07/31/2019 I10 Essential (primary) hypertension Judson Britt M.D.,FACP 07/31/2019 E78.5 Hyperlipidemia, unspecified Judson Britt M.D.,FACP 07/31/2019 K21.9 Gastro-esophageal reflux disease Judson Britt M.D., FACP without esophagitis 07/31/2019 F41.9 Anxiety disorder, unspecified Judson Britt M.D.,FACP 07/30/2019 R07.9 Chest pain, unspecified Erin Blandon MD 07/30/2019 E78.5 Hyperlipidemia, unspecified Erin Blandon MD 07/30/2019 I10 Essential (primary) hypertension Erin Blandon MD 07/30/2019 F29 Unspecified psychosis not due to a Erin Blandon MD substance or known physiological condition 07/29/2019 R07.9 Chest pain, unspecified LUIS F Bowser 07/29/2019 I10 Essential (primary) hypertension LUIS F Bowser 07/29/2019 E78.5 Hyperlipidemia, unspecified LUIS F Bowser 07/28/2019 R07.9 Chest pain, unspecified Tony Nails PA 07/28/2019 I10 Essential (primary) hypertension LUIS F Bowser 07/28/2019 E78.5 Hyperlipidemia, unspecified LUIS F Bowser 07/27/2019 R07.9 Chest pain, unspecified Eufemia Glass, INSTRUMENTATION CHEMIST 07/27/2019 I10 Essential (primary) hypertension Eufemia Glass, INSTRUMENTATION CHEMIST 07/27/2019 K21.9 Gastro-esophageal reflux disease Eufemia Nickersonckney, INSTRUMENTATION CHEMIST without esophagitis 07/27/2019 F41.9 Anxiety disorder, unspecified Eufemia Glass, INSTRUMENTATION CHEMIST 07/27/2019 F31.9 Bipolar disorder, unspecified Eufemai Glass, INSTRUMENTATION CHEMIST 07/14/2019 R07.9 Chest pain, unspecified LUIS F Bowser 07/14/2019 B34.9 Viral infection, unspecified LUIS F Bowser 07/14/2019 R74.0 Nonspecific elevation of levels of LUIS F Bowser transaminase and lactic acid dehydrogenase [LDH] 07/14/2019 I10 Essential (primary) hypertension LUIS F Bowser 07/14/2019 K21.9 Gastro-esophageal reflux disease LUIS F Bowser without esophagitis 07/13/2019 R07.9 Chest pain, unspecified Raudel Cohen, DO FACC 07/13/2019 R07.9 Chest pain, unspecified Margaux Juarez, INSTRUMENTATION CHEMIST 07/13/2019 R74.0 Nonspecific elevation of levels of [...]
--- NOTE | 2019-08-15 14:33 | PN ---
Subjective - Subjective Date of Service: 08/15/19 Service Type: 12920 Hosp care 15 min low complexity Subjective: Patient reports he is having "scattered thoughts." He reports he is thinking about hearing people telling him he is a liar and such. Television Technician inquired what has been helpful for hearing these things in the past. He states "Staying away from people helps." He denies thoughts of hurting others or himself. He states he will "think about" working with the ACT team. He states he would prefer to be discharged soon and return to [facility]. Objective - General Observations Appearance: Well Groomed Stature: Overweight Posture: WNL Eye Contact: Average Behavior/Activity: WNL - Interaction Observations Attitude Towards Examiner: Cooperative Stated Mood: Euthymic Affect: Restricted Speech Pattern/Tone: Clear, Appropriate, Normal Volume Thought Process: Goal Directed, Circumstantial Perception: WNL Thought Content: Paranoid Thought Process: Lethality: Paranoid Ideation Hallucination Type: Auditory Delusion Type: Denies - Cognitive Function Orientation: A&O x 4 Level of Consciousness: Alert Cognition: Impaired Attention/Concentration Estimated Intelligence: Normal Insight: Difficulty Acknowledging Presence of Psyciatric Problems Judgment Within Normal Limits: No Ability to Make Reasonable Decisions: Mildly Impaired - Medication Compliance Cooperative with Inpatient Medication Regimen: Yes - Group Participation Participates in Group Activities: No Assessment - Assessment Merits Inpatient Hospitalization: For Immediate Safety, For Stabilization Inpatient DSM-V Dx: F20.9 Clinical Impression: 49yo wm with lifelong history of mental illness and multiple psychiatric hospitalizations who presented to the ED with chest pain and delusional thought processes, command hallucinations, and suicidal and homicidal ideations. He merits hospitalization for immediate safety and stabilization. Plan - Plan Treatment Plan: Name: CONSUELO JUDGE Birthdate: 1970 [id number] continue acute intensive psychiatric treatment. may decrease to q30min obs. resume known outpatient medications: amlodipine, pantoprazole as formulary sub for omeprazole, lisinopril, and oral paliperidone. add lorazepam and thorazine prn for anxiety and agitation. obtain collateral from outpatient providers for treatment planning. Medications: Current Medications Acetaminophen (Tylenol Tab*) 650 mg PO Q4H PRN PRN Reason: PAIN or TEMP > 101 F Last Admin: 08/12/19 10:45 Dose: 650 mg Al Hydrox/Mg Hydrox/Simethicone (Maalox Plus*) 30 ml PO Q4H PRN PRN Reason: INDIGESTION Amlodipine Besylate (Norvasc Tab*) 5 mg PO DAILY [facility] Last Admin: 08/15/19 09:42 Dose: 5 mg Atorvastatin Calcium (Lipitor*) 40 mg PO DAILY [facility] Last Admin: 08/15/19 09:42 Dose: 40 mg Chlorpromazine HCl (Thorazine Tab*) 100 mg PO Q6H PRN PRN Reason: AGITATION Last Admin: 08/15/19 09:43 Dose: 100 mg Lorazepam (Ativan Tab(*)) 2 mg PO Q6H PRN PRN Reason: Anxiety/agitation Last Admin: 08/14/19 19:18 Dose: 2 mg Multivitamins (Theragran Tab*) 1 tab PO DAILY [facility] Last Admin: 08/15/19 09:42 Dose: 1 tab Ondansetron HCl (Zofran Odt Tab*) 4 mg PO Q6H PRN PRN Reason: NAUSEA/VOMITING Paliperidone (Invega Er Tab*) 9 mg PO BEDTIME [facility] Last Admin: 08/14/19 21:20 Dose: 9 mg Pantoprazole Sodium (Protonix Tab*) 40 mg PO DAILY [facility] Last Admin: 08/15/19 09:42 Dose: 40 mg Pharmacy Profile Note (Nicotine Patch Removal Note*) 1 note PATCH OFF 2100 [facility] Last Admin: 08/14/19 21:20 Dose: Not Given - Discharge Plan Discharge Plan: Inpatient Hospitalization
[2019-08-15] MEDS: LORazepam TAB(*) 1 MG PO PRN (15:57)
[2019-08-15] MEDS ORDERED: Nicotine* 2MG (FRUIT FLAVOR) GUM PO PRN (19:57)
[2019-08-15] MEDS: Paliperidone ER TAB* 9 MG TAB.ER PO SCH (21:32)
[2019-08-15] MEDS: Nicotine Patch Removal NOTE PATCH OFF SCH (21:32)
[2019-08-16] MEDS: chlorproMAZINE TAB* 100 MG PO PRN (08:53)
[2019-08-16] MEDS: Acetaminophen TAB* 325 MG PO PRN (08:53)
[2019-08-16] MEDS: Vitamin THERAPEUTIC TAB PO SCH (08:54)
[2019-08-16] MEDS: Atorvastatin* 40 MG TAB PO SCH (08:54)
[2019-08-16] MEDS: amLODIPine TAB* 5 MG PO SCH (08:54)
[2019-08-16] MEDS: Pantoprazole TAB * 40 MG TAB PO SCH (08:54)
--- NOTE | 2019-08-16 09:49 | DCNOTE ---
Subjective - Subjective Service Types: 94939 Hosp DC Day Mgmt simple under 30 min Discharge Date: 08/16/19 Subjective: Patient is pleasant upon approach and in behavioral control. He is well- related and states understanding of and agreement with discharge plan. He denies SI or thoughts of harm toward others. He has been utilizing thorazine per his request for agitation and suicidal thoughts. Due to his history of multiple trials of monotherapy and poor adherence to outpatient treatment, he is deemed appropriate for dual antipsychotic use at this time. He is not a candidate for clozapine due to poor outpatient adherence. Objective - General Observations Appearance: Well Groomed Stature: Overweight Posture: WNL Eye Contact: Average Behavior/Activity: WNL - Interaction Observations Attitude Towards Examiner: Cooperative Stated Mood: Euthymic Affect: Blunted Speech Pattern/Tone: Clear, Appropriate, Normal Volume Thought Process: Coherent, Goal Directed Perception: WNL Thought Content: Paranoid Hallucination Type: Auditory Delusion Type: Persecution - Cognitive Function Orientation: A&O x 4 Level of Consciousness: Alert Cognition: Impaired Attention/Concentration Estimated Intelligence: Normal Insight: WNL Judgment Within Normal Limits: Yes - Medication Compliance Cooperative with Inpatient Medication Regimen: Yes - Group Participation Participates in Group Activities: No DC Assessment - Assessment Clinical Impression: 49yo wm with lifelong history of mental illness and multiple psychiatric hospitalizations who presented to the ED with chest pain and delusional thought processes, command hallucinations, and suicidal and homicidal ideations. He has stabilized in this structured setting and denies SI/HI/. Merits Inpatient Hospitalization: No Clear for Discharge: Adequate Clinical Respons, Acceptable Safety Profile, Low Utility of Inpt Care Inpatient DSM-V Dx: F20.9 Discharge Planning - Discharge Planning Discharge Plan: Outpatient Follow Up Outpatient Program: [facility] Recommendations for Continuing Care: Medication Management, Routine Metabolic Monitoring, Primary Care Followup Medications: Current Medications Amlodipine Besylate (Norvasc Tab*) 5 mg PO DAILY [facility] Last Admin: 08/16/19 08:54 Dose: 5 mg Atorvastatin Calcium (Lipitor*) 40 mg PO DAILY [facility] Last Admin: 08/16/19 08:54 Dose: 40 mg Chlorpromazine HCl (Thorazine Tab*) 100 mg PO Q6H PRN PRN Reason: AGITATION Last Admin: 08/16/19 08:53 Dose: 100 mg Ondansetron HCl (Zofran Odt Tab*) 4 mg PO Q6H PRN PRN Reason: NAUSEA/VOMITING Paliperidone Sustenna 156mg IM qmonth. Last given on 07/31/19. due 08/28/19 Pantoprazole Sodium (Protonix Tab*) 40 mg PO DAILY [facility] Last Admin: 08/16/19 08:54 Dose: 40 mg Discharge Planning: Prescriptions provided for discharge [x] Yes [] No Follow up care details as per social work arrangements: [facility] care connections on 08/29/19. [facility] referral Patient response to discharge plan: [x] eager for discharge [x] agreeable with discharge plan [] ambivalent about discharge [] disagrees with discharge today
[2019-08-16 10:39] VITALS: BP 139/95
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
== END 2019-08-16 11:10 | disposition home or self-care (01) | DRG 750 ==
LOC: ED 18:38 → BSU 23:17
PROVIDERS: ADMIT Psychiatry & Neurology Psychiatry; ATTEND Psychiatry & Neurology Psychiatry
DX: F20.0 Paranoid schizophrenia (principal); R45.851 Suicidal ideations; R07.9 Chest pain, unspecified; E78.5 Hyperlipidemia, unspecified; E66.9 Obesity, unspecified; E78.00 Pure hypercholesterolemia, unspecified; K27.9 Peptic ulcer, site unspecified, unspecified as acute or chronic, without hemorrhage or perforation; Z59.0 Homelessness; Z68.36 Body mass index [BMI] 36.0-36.9, adult; Z79.899 Other long term (current) drug therapy
CPT/HCPCS: 36415; 71045; 80053; 80061; 80307; 80320; 83036; 84443; 84484; 85025; 85610; 93005; 96365; 96367; 96375; 99222; 99231; 99232; 99284; A9270-GY; G0480

== ENCOUNTER 2019-08-25 20:00 | Emergency (ER) | payer MEDICAID ==
[2019-08-25] MEDS ORDERED: NS 0.9% 1000 ML** 1,000 ML IV ONE (20:50)
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
[2019-08-25 21:21] LABS: ABS Basophils 0.1 10^3/ul (0-0.2); ABS Eosinophils 0.2 10^3/ul (0-0.6); ABS Lymphocytes 2.4 10^3/ul (1.0-4.8); ABS Monocytes 0.6 10^3/ul (0-0.8); ABS Neutrophils 4.5 10^3/ul (1.5-7.7); Eosinophil % 2.1 %; Hematocrit 40 % (42-52); Hemoglobin 13.7 g/dL (14.0-18.0); Lymphocyte % 30.5 %; Mean Corpuscular HGB Conc 34 g/dL (31-36); Mean Corpuscular Hemoglobin 29 pg (27-31); Mean Corpuscular Volume 86 fL (80-94); Mean Platelet Volume 8.4 fL (7.4-10.4); Nucleated Red Blood Cells % 0.1; Platelet Count 232 10^3/uL (150-450); Red Blood Count 4.69 10^6 /uL (4.18-5.48); Red Cell Distribution Width 15 % (10-15); White Blood Count 7.7 10^3/uL (3.5-10.8)
[2019-08-25 21:24] LABS: Urine Appearance Clear; Urine Bilirubin Negative (Negative); Urine Blood Negative (Negative); Urine Color Yellow; Urine Glucose Negative (Negative); Urine Ketones Negative (Negative); Urine Nitrite Negative (Negative); Urine Protein Negative (Negative); Urine Specific Gravity 1.009 (1.010-1.030); Urine Urobilinogen Negative (Negative)
[2019-08-25 21:34] LABS: ALT 17 U/L (7-52); AST 14 U/L (13-39); Albumin 3.7 g/dL (3.2-5.2); Albumin/Globulin Ratio 1.3 (1-3); Alkaline Phosphatase 75 U/L (34-104); Anion Gap 4 mmol/L (2-11); BUN/Creatinine Ratio 14.1 (8-20); Blood Urea Nitrogen 10 mg/dL (6-24); C Reactive Protein 5.58 mg/L (<8.01); CO2 Carbon Dioxide 26 mmol/L (22-32); Calcium 8.8 mg/dL (8.6-10.3); Chloride 108 mmol/L (101-111); EGFR African American 141.5 (>60); Globulin 2.9 g/dL (2-4); Glucose 115 mg/dL (70-100); Potassium 3.9 mmol/L (3.5-5.0); Sodium 138 mmol/L (135-145); Total Protein 6.6 g/dL (6.4-8.9)
[2019-08-25 21:35] LABS: Troponin I 0.01 ng/mL (<0.03)
[2019-08-25 21:51] LABS: Urine Benzodiazepine Screen None Detected (None Detect); Urine Opiates Screen None Detected (None Detect)
[2019-08-25 22:02] LABS: Lithium < 0.10 mmol/L (0.6-1.2)
[2019-08-25 23:13] VITALS: BP 139/89
== END 2019-08-25 23:13 | disposition home or self-care (01) ==
LOC: ED 20:00
DX: J20.9 Acute bronchitis, unspecified (principal); R00.0 Tachycardia, unspecified; I10 Essential (primary) hypertension; F17.210 Nicotine dependence, cigarettes, uncomplicated
CPT/HCPCS: 36415; 71046; 80053; 80178; 80307; 81003; 83605; 84484; 85025; 85379; 86140; 93005; 96360; 99283

== ENCOUNTER 2019-11-01 18:36 | Emergency (ER) | payer MEDICAID ==
[2019-11-01 19:00] LABS: ABS Basophils 0.1 10^3/ul (0-0.2); ABS Eosinophils 0.2 10^3/ul (0-0.6); ABS Lymphocytes 2.4 10^3/ul (1.0-4.8); ABS Monocytes 0.8 10^3/ul (0-0.8); ABS Neutrophils 4.5 10^3/ul (1.5-7.7); Eosinophil % 2.1 %; Hematocrit 44 % (42-52); Hemoglobin 15.3 g/dL (14.0-18.0); Lymphocyte % 30.2 %; Mean Corpuscular HGB Conc 35 g/dL (31-36); Mean Corpuscular Hemoglobin 30 pg (27-31); Mean Corpuscular Volume 84 fL (80-94); Mean Platelet Volume 8.9 fL (7.4-10.4); Platelet Count 235 10^3/uL (150-450); Red Blood Count 5.17 10^6 /uL (4.18-5.48); Red Cell Distribution Width 15 % (10-15); White Blood Count 7.9 10^3/uL (3.5-10.8)
[2019-11-01 19:13] LABS: INR 0.96 (0.82-1.09)
[2019-11-01 19:18] LABS: Troponin I 0.01 ng/mL (<0.03)
[2019-11-01] MEDS ORDERED: Acetaminophen TAB* 325 MG PO ONE (19:18)
[2019-11-01 19:20] LABS: Albumin/Globulin Ratio 1.4 (1-3); BUN/Creatinine Ratio 25.3 (8-20); Calcium 8.9 mg/dL (8.6-10.3); EGFR African American 132.9 (>60); EGFR Non-African American 109.8 (>60); Globulin 2.9 g/dL (2-4); Total Bilirubin 0.3 mg/dL (0.2-1.0); Total Protein 6.9 g/dL (6.4-8.9)
--- OUTSIDE RECORDS SUMMARY | 2019-11-01 19:21 | XMS REPORT ---
:1970 Author Organization [facility] Care Team Providers Name Role Phone Nahum Back Primary Care Physician Unavailable Allergies, Adverse Reactions, Alerts Allergy Code CodeSystem Reaction Severity Criticality Status Start Substance Date Moderate Medications Medication Medication Medication Start Stop Route Dose Status Fill Code CodeSystem Date Date Instructions lithium 854807 RxNorm 2018-09 oral 300 mg 2 active 2 tablet at carbonate 2-18 tablet bedtime for 30 extended day(s) release at bedtime hydroxyzine 430770 RxNorm 2018-09 oral 50 mg 1 active Take 1 tablet HCl 2-18 tablet at at bedtime as bedtime needed for 30 day(s) Invega 454730 RxNorm 2018-09 IM 234 active Inject 1 syringe Sustenna 2-13 mg/1.5 mL intramuscularly 1 syringe every four weeks every for 28 day(s) four weeks Problems Problem Name Code CodeSystem Alternate Alternate Start End Status Narrative Code CodeSystem Date Date Schizoaffective 80307871 SNOMED-CT 2018-09 Active disorder, manic 2-20 type Relevant diagnostic tests/laboratory data Narrative No Information Procedures Procedure Code CodeSystem Target Date of Status Service Device Device Device Name Site Procedure Delivery Code Name UID Location SNOMED-CT () 2019-06-15 complete Mental d [address], [id number] Comprehensiv 828547 SNOMED-CT () 2019-08-25 complete Mental e medication [address] [place], [place], [id number] Encounters/Encounter Diagnoses Encounter Encounter Diagnosis Diagnosis Name Diagnosis Date of Service Name Code Code CodeSystem Diagnosis Delivery Location Initial [id number] Schizoaffective SNOMED-CT 2019-08-30 Behavioral Assessment disorder, manic [facility] , , Treatment , Plan w/ Medical Services Vital Signs No Information Social History Element Description Description Start End Code CodeSystem AdditionalInfo Date Date SexAssignedAtBirth Male 1969-09 M AdministrativeGender 0-04 Hospital Discharge Instructions Reason For Referral Medical Equipment FDA Assessments
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
[2019-11-01 22:45] VITALS: BP 122/88
== END 2019-11-01 22:44 | disposition home or self-care (01) ==
LOC: ED 18:36
DX: R07.9 Chest pain, unspecified (principal); I10 Essential (primary) hypertension; J45.909 Unspecified asthma, uncomplicated; F32.9 Major depressive disorder, single episode, unspecified; F17.210 Nicotine dependence, cigarettes, uncomplicated; Z79.899 Other long term (current) drug therapy
CPT/HCPCS: 36415; 71046; 80053; 84484; 85025; 85610; 99283; A9270-GY

== ENCOUNTER 2019-11-06 00:13 | Emergency (ER) | payer MEDICAID ==
[2019-11-06] MEDS ORDERED: Acetaminophen TAB* 325 MG PO ONE (00:28)
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
[2019-11-06 02:16] VITALS: BP 139/95
== END 2019-11-06 02:20 | disposition home or self-care (01) ==
LOC: ED 00:13
DX: R07.89 Other chest pain (principal); R42 Dizziness and giddiness; I10 Essential (primary) hypertension; Z79.899 Other long term (current) drug therapy; Z82.49 Family history of ischemic heart disease and other diseases of the circulatory system; Z83.3 Family history of diabetes mellitus; F17.210 Nicotine dependence, cigarettes, uncomplicated
CPT/HCPCS: 36415; 84484; 93005; 99282; A9270-GY

== ENCOUNTER 2019-11-22 09:13 | Emergency (ER) | payer MEDICAID ==
[2019-11-22] MEDS ORDERED: Al Hydrox/Mg Hydrox/Simet LIQ* 30 ML UDC PO ONE (09:29)
[2019-11-22] MEDS ORDERED: Lidocaine 2% VISCOUS* 15 ML UDC PO ONE (09:29)
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
[2019-11-22 10:09] LABS: ABS Eosinophils 0.2 10^3/ul (0-0.6); ABS Lymphocytes 2.2 10^3/ul (1.0-4.8); ABS Monocytes 0.4 10^3/ul (0-0.8); ABS Neutrophils 3.1 10^3/ul (1.5-7.7); Eosinophil % 2.7 %; Hematocrit 44 % (42-52); Lymphocyte % 36.8 %; Mean Corpuscular HGB Conc 34 g/dL (31-36); Mean Corpuscular Hemoglobin 29 pg (27-31); Mean Corpuscular Volume 85 fL (80-94); Mean Platelet Volume 9.3 fL (7.4-10.4); Nucleated Red Blood Cells % 0.1; Platelet Count 175 10^3/uL (150-450); Red Blood Count 5.19 10^6 /uL (4.18-5.48); Red Cell Distribution Width 15 % (10-15); White Blood Count 5.8 10^3/uL (3.5-10.8)
[2019-11-22 10:32] LABS: Albumin 3.7 g/dL (3.2-5.2); Albumin/Globulin Ratio 1.5 (1-3); BUN/Creatinine Ratio 20.8 (8-20); Calcium 8.6 mg/dL (8.6-10.3); EGFR African American 139.3 (>60); EGFR Non-African American 115.1 (>60); Globulin 2.5 g/dL (2-4); Potassium 3.8 mmol/L (3.5-5.0); Total Bilirubin 0.3 mg/dL (0.2-1.0); Total Protein 6.2 g/dL (6.4-8.9)
[2019-11-22] MEDS ORDERED: Famotidine IV* 10 MG/ML 2 ML (20 mg) IV SLOW PU ONE (12:12)
[2019-11-22 14:24] VITALS: BP 120/71
== END 2019-11-22 14:27 | disposition home or self-care (01) ==
LOC: ED 09:13
DX: R07.89 Other chest pain (principal); R06.02 Shortness of breath; R20.0 Anesthesia of skin; I10 Essential (primary) hypertension; Z79.899 Other long term (current) drug therapy; F17.210 Nicotine dependence, cigarettes, uncomplicated
CPT/HCPCS: 36415; 71046; 80053; 84484; 85025; 93005; 96374; 99284; A9270-GY

== ENCOUNTER 2019-12-03 00:20 | Emergency (ER) | payer MEDICAID ==
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
[2019-12-03 01:09] LABS: ABS Eosinophils 0.2 10^3/ul (0-0.6); ABS Lymphocytes 3.3 10^3/ul (1.0-4.8); ABS Monocytes 0.8 10^3/ul (0-0.8); ABS Neutrophils 8.3 10^3/ul (1.5-7.7); Eosinophil % 1.3 %; Hematocrit 44 % (42-52); Hemoglobin 15.1 g/dL (14.0-18.0); Lymphocyte % 26.1 %; Mean Corpuscular HGB Conc 35 g/dL (31-36); Mean Corpuscular Hemoglobin 29 pg (27-31); Mean Corpuscular Volume 83 fL (80-94); Mean Platelet Volume 9.5 fL (7.4-10.4); Nucleated Red Blood Cells % 0.1; Platelet Count 237 10^3/uL (150-450); Red Blood Count 5.24 10^6 /uL (4.18-5.48); Red Cell Distribution Width 15 % (10-15); White Blood Count 12.6 10^3/uL (3.5-10.8)
[2019-12-03 01:36] LABS: ALT 17 U/L (7-52); Albumin 4.2 g/dL (3.2-5.2); Albumin/Globulin Ratio 1.4 (1-3); Alkaline Phosphatase 87 U/L (34-104); BUN/Creatinine Ratio 16.9 (8-20); Blood Urea Nitrogen 13 mg/dL (6-24); CO2 Carbon Dioxide 25 mmol/L (22-32); Calcium 9.9 mg/dL (8.6-10.3); Chloride 100 mmol/L (101-111); EGFR African American 128.9 (>60); EGFR Non-African American 106.5 (>60); Globulin 2.9 g/dL (2-4); Glucose 100 mg/dL (70-100); Sodium 135 mmol/L (135-145); Total Protein 7.1 g/dL (6.4-8.9)
[2019-12-03 01:38] LABS: Troponin I 0.01 ng/mL (<0.03)
[2019-12-03 02:02] LABS: Anion Gap 10 mmol/L (2-11)
[2019-12-03 02:51] LABS: Potassium Redraw 3.7 mmol/L (3.5-5.0)
[2019-12-03 04:04] VITALS: BP 118/77
== END 2019-12-03 04:03 | disposition home or self-care (01) ==
LOC: ED 00:20
DX: R07.9 Chest pain, unspecified (principal); K21.9 Gastro-esophageal reflux disease without esophagitis; R06.02 Shortness of breath; R05 Cough; R42 Dizziness and giddiness; F17.210 Nicotine dependence, cigarettes, uncomplicated; Z86.718 Personal history of other venous thrombosis and embolism; Z79.899 Other long term (current) drug therapy
CPT/HCPCS: 36415; 71045; 80053; 80178; 84484; 85025; 93005; 99283

== ENCOUNTER 2019-12-07 01:43 | Inpatient (IN) | payer MEDICAID ==
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
[2019-12-07 02:35] LABS: Urine Appearance Clear; Urine Bilirubin Negative (Negative); Urine Blood Negative (Negative); Urine Color Yellow; Urine Glucose Negative (Negative); Urine Ketones Negative (Negative); Urine Nitrite Negative (Negative); Urine Protein Negative (Negative); Urine Specific Gravity 1.009 (1.010-1.030); Urine Urobilinogen Negative (Negative)
[2019-12-07] MEDS ORDERED: Lorazepam PYXIS KEY PRN (02:43)
[2019-12-07] MEDS ORDERED: LORazepam INJ* 2 MG/ML 1 ML VIAL IM ONE (02:43)
[2019-12-07] MEDS ORDERED: Lorazepam PYXIS KEY ONE (02:48)
[2019-12-07 02:51] LABS: Urine Benzodiazepine Screen None Detected (None Detect); Urine Opiates Screen None Detected (None Detect)
[2019-12-07 03:27] LABS: ABS Basophils 0.1 10^3/ul (0-0.2); ABS Eosinophils 0.1 10^3/ul (0-0.6); ABS Lymphocytes 3.2 10^3/ul (1.0-4.8); ABS Monocytes 0.8 10^3/ul (0-0.8); ABS Neutrophils 5.7 10^3/ul (1.5-7.7); Eosinophil % 1.2 %; Hematocrit 41 % (42-52); Hemoglobin 14.5 g/dL (14.0-18.0); Lymphocyte % 32.6 %; Mean Corpuscular HGB Conc 36 g/dL (31-36); Mean Corpuscular Hemoglobin 29 pg (27-31); Mean Corpuscular Volume 83 fL (80-94); Mean Platelet Volume 8.4 fL (7.4-10.4); Platelet Count 222 10^3/uL (150-450); Red Blood Count 4.93 10^6 /uL (4.18-5.48); Red Cell Distribution Width 15 % (10-15); White Blood Count 9.9 10^3/uL (3.5-10.8)
[2019-12-07 03:43] LABS: ALT 17 U/L (7-52); AST 11 U/L (13-39); Albumin 3.9 g/dL (3.2-5.2); Albumin/Globulin Ratio 1.3 (1-3); Alkaline Phosphatase 67 U/L (34-104); Anion Gap 8 mmol/L (2-11); BUN/Creatinine Ratio 13.3 (8-20); Blood Urea Nitrogen 11 mg/dL (6-24); CO2 Carbon Dioxide 23 mmol/L (22-32); Calcium 9.5 mg/dL (8.6-10.3); Chloride 105 mmol/L (101-111); EGFR African American 118.2 (>60); EGFR Non-African American 97.7 (>60); Glucose 93 mg/dL (70-100); Potassium 3.8 mmol/L (3.5-5.0); Sodium 136 mmol/L (135-145); Total Protein 6.9 g/dL (6.4-8.9)
[2019-12-07 04:16] LABS: Acetaminophen < 15 mcg/mL; Alcohol < 10 mg/dL (<10); Salicylate < 2.50 mg/dL (<30)
[2019-12-07 04:31] LABS: TSH (Thyroid Stimulating Horm) 2.35 mcIU/mL (0.34-5.60)
[2019-12-07] MEDS ORDERED: LORazepam TAB(*) 1 MG ONE (05:28)
[2019-12-07] MEDS ORDERED: CHLORPROMAZINE 100 MG PO (05:39)
[2019-12-07] MEDS ORDERED: Nicotine* 2MG (FRUIT FLAVOR) GUM PO PRN (06:04)
[2019-12-07] MEDS: Pantoprazole TAB * 40 MG TAB PO SCH (08:28)
[2019-12-07] MEDS: amLODIPine TAB* 5 MG PO SCH (08:28)
[2019-12-07] MEDS: Al Hydrox/Mg Hydrox/Simet LIQ* 30 ML UDC PO PRN (08:28)
[2019-12-07] MEDS: Vitamin THERAPEUTIC TAB PO SCH (08:38)
[2019-12-07] MEDS: Acetaminophen TAB* 325 MG PO PRN (08:52)
[2019-12-07] MEDS: Atorvastatin* 40 MG TAB PO SCH (10:00)
[2019-12-07] MEDS: chlorproMAZINE TAB* 100 MG PO SCH ×2 (16:40→21:43)
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
[2019-12-07] MEDS: Lithium Carbonate TAB* 300 MG PO SCH (21:44)
[2019-12-08 09:25] LABS: HDL Cholesterol 49.4 mg/dL
[2019-12-08] MEDS: amLODIPine TAB* 5 MG PO SCH ×2 (12:37→14:08)
[2019-12-08] MEDS: Vitamin THERAPEUTIC TAB PO SCH ×2 (12:37→14:09)
[2019-12-08] MEDS: Pantoprazole TAB * 40 MG TAB PO SCH ×2 (12:37→14:09)
[2019-12-08] MEDS: Atorvastatin* 40 MG TAB PO SCH ×2 (12:37→14:08)
[2019-12-08] MEDS: chlorproMAZINE TAB* 100 MG PO SCH ×3 (12:37→23:32)
--- NOTE | 2019-12-08 13:30 | PN ---
Subjective - Subjective Date of Service: 12/08/19 Service Type: 68248 Hosp care 25 min moderate complexity Subjective: Patient lying in bed upon approach. He is guarded and difficult to engage in conversation. At one point, he is irritable and states that he hears everyone talking about him. He states "I want to be left the f--k alone!" He is receptive to therapeutic communication and changing focus to prioritize his overall health. He agrees to shower after conversation. Objective - General Observations Appearance: Disheveled, Malodorous Stature: Overweight Posture: Slumped Eye Contact: Avoidant Behavior/Activity: Slowed - Interaction Observations Attitude Towards Examiner: Evasive, Hostile Stated Mood: Irritable Affect: Restricted Speech Pattern/Tone: Quiet Volume Thought Process: Circumstantial, Impoverished Perception: WNL Thought Content: Depressive, Paranoid Thought Process: Lethality: Paranoid Ideation Hallucination Type: Auditory Delusion Type: Thought Broadcasting, Persecution, Somatic - Cognitive Function Orientation: A&O x 4 Level of Consciousness: Alert Cognition: Impaired Attention/Concentration Estimated Intelligence: Normal Insight: Mostly Blames Others for Problems, Difficulty Acknowledging Presence of Psyciatric Problems Judgment Within Normal Limits: No Ability to Make Reasonable Decisions: Serverely Impaired - Medication Compliance Cooperative with Inpatient Medication Regimen: Yes - Group Participation Participates in Group Activities: No Assessment - Assessment Merits Inpatient Hospitalization: For Immediate Safety, For Stabilization Inpatient DSM-V Dx: F25.1 Clinical Impression: 49yo wm, mentally disabled, temporarily housed through homeless [facility] with known history of schizoaffective disorder and poor adherence to outpatient treatment. He presented to the ED via EMS due to AH, suicidal and homicidal ideation. He merits hospitalization for immediate safety and stabilization. Plan - Plan Treatment Plan: Name: CONSUELO JUDGE Birthdate: 1970 [id number] continue acute intensive psychiatric treatment. may decrease to q30min and allow staff pass per RN discretion. encourage ADLs and activity during the day. continue current medications. obtain lithium level on am of 12/11/19. discharge planning to include outpatient providers and social services specialist. Continued Medication Management: Continue Outpt Medication Medications: Current Medications Acetaminophen (Tylenol Tab*) 650 mg PO Q4H PRN PRN Reason: PAIN or TEMP > 101 F Last Admin: 12/07/19 08:52 Dose: 650 mg Al Hydrox/Mg Hydrox/Simethicone (Maalox Plus*) 30 ml PO Q4H PRN PRN Reason: INDIGESTION Last Admin: 12/07/19 08:28 Dose: 30 ml Amlodipine Besylate (Norvasc Tab*) 5 mg PO DAILY [facility] Last Admin: 12/08/19 12:37 Dose: Not Given Atorvastatin Calcium (Lipitor*) 40 mg PO DAILY [facility] Last Admin: 12/08/19 12:37 Dose: Not Given Chlorpromazine HCl (Thorazine Tab*) 100 mg PO TID [facility] Last Admin: 12/08/19 12:37 Dose: Not Given Diphenhydramine HCl (Benadryl Po*) 50 mg PO BEDTIME PRN PRN Reason: INSOMNIA [place] Carbonate ([place] Carbonate Tab*) 600 mg PO BEDTIME [facility] Last Admin: 12/07/19 21:44 Dose: 600 mg Lorazepam (Ativan Tab(*)) 1 mg PO Q4H PRN PRN Reason: ANXIETY/AGITATION Multivitamins (Theragran Tab*) 1 tab PO DAILY [facility] Last Admin: 12/08/19 12:37 Dose: Not Given Paliperidone Palmitate (Invega Sustenna*) 156 mg IM Q30D [facility] Pantoprazole Sodium (Protonix Tab*) 40 mg PO DAILY [facility] Last Admin: 12/08/19 12:37 Dose: Not Given - Discharge Plan Discharge Plan: Inpatient Hospitalization Outpatient Program: Lnea Liao [facility]
[2019-12-08] MEDS: Lithium Carbonate TAB* 300 MG PO SCH (23:32)
[2019-12-08] MEDS: Acetaminophen TAB* 325 MG PO PRN (23:32)
[2019-12-09] MEDS: LORazepam TAB(*) 1 MG PO PRN ×2 (03:35→19:34)
[2019-12-09] MEDS: chlorproMAZINE TAB* 100 MG PO SCH ×3 (12:01→21:50)
[2019-12-09] MEDS: Atorvastatin* 40 MG TAB PO SCH (13:51)
[2019-12-09] MEDS: amLODIPine TAB* 5 MG PO SCH (13:52)
[2019-12-09] MEDS: Pantoprazole TAB * 40 MG TAB PO SCH (13:52)
[2019-12-09] MEDS: Vitamin THERAPEUTIC TAB PO SCH (13:52)
--- NOTE | 2019-12-09 15:02 | PN ---
Subjective - Subjective Date of Service: 12/09/19 Service Type: 00634 Hosp care 15 min low complexity Subjective: Soren is seen in weekend coverage for NPCarlos, Debi Leon. He is found in his room, laying in bed under the covers. He is calm and cooperative. The patient denies SI today but endorses having had suicidal thoughts as recently as yesterday. He continues to report an ego-dystonic set of auditory hallucinations telling him "You're gonna . You have heart damage and lung damage. 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 He denies HI currently. Objective - General Observations Appearance: Disheveled Appears Stated Age: Yes Stature: Overweight Posture: Slumped Eye Contact: Intense Behavior/Activity: Peculiar - Interaction Observations Attitude Towards Examiner: Cooperative Stated Mood: Dysphoric Affect: Blunted Speech Pattern/Tone: Clear, Appropriate Thought Process: Coherent Thought Content: Paranoid Thought Process: Lethality: Paranoid Ideation Hallucination Type: Auditory Delusion Type: Persecution, Somatic - Cognitive Function Orientation: A&O x 4 Level of Consciousness: Awake, Alert Cognition: WNL Estimated Intelligence: Normal Insight: WNL Judgment Within Normal Limits: Yes - Medication Compliance Cooperative with Inpatient Medication Regimen: Yes - Group Participation Participates in Group Activities: No Assessment - Assessment Merits Inpatient Hospitalization: For Immediate Safety, For Stabilization Inpatient DSM-V Dx: F25.1 Clinical Impression: 49yo wm, mentally disabled, temporarily housed through homeless assisted with known history of schizoaffective disorder and poor adherence to outpatient treatment. He presented to the ED via EMS due to AH, suicidal and homicidal ideation. He merits hospitalization for immediate safety and stabilization. Plan - Plan Treatment Plan: Name: SOREN JUDGE Birthdate: 1970 [id number] continue acute intensive psychiatric treatment. may decrease to q30min and allow staff pass per RN discretion. encourage ADLs and activity during the day. continue current medications. obtain lithium level on am of 12/11/19. discharge planning to include outpatient providers and professor of social work. Continued Medication Management: Different Medication Medications: Current Medications Acetaminophen (Tylenol Tab*) 650 mg PO Q4H PRN PRN Reason: PAIN or TEMP > 101 F Last Admin: 12/08/19 23:32 Dose: 650 mg Al Hydrox/Mg Hydrox/Simethicone (Maalox Plus*) 30 ml PO Q4H PRN PRN Reason: INDIGESTION Last Admin: 12/07/19 08:28 Dose: 30 ml Amlodipine Besylate (Norvasc Tab*) 5 mg PO DAILY [facility] Last Admin: 12/09/19 13:52 Dose: 5 mg Atorvastatin Calcium (Lipitor*) 40 mg PO DAILY [facility] Last Admin: 12/09/19 13:51 Dose: 40 mg Chlorpromazine HCl (Thorazine Tab*) 100 mg PO TID [facility] Last Admin: 12/09/19 13:51 Dose: 100 mg Diphenhydramine HCl (Benadryl Po*) 50 mg PO BEDTIME PRN PRN Reason: INSOMNIA [place] Carbonate ([place] Carbonate Tab*) 600 mg PO BEDTIME [facility] Last Admin: 12/08/19 23:32 Dose: 600 mg Lorazepam (Ativan Tab(*)) 1 mg PO Q4H PRN PRN Reason: ANXIETY/AGITATION Last Admin: 12/09/19 03:35 Dose: 1 mg Multivitamins (Theragran Tab*) 1 tab PO DAILY [facility] Last Admin: 12/09/19 13:52 Dose: 1 tab Paliperidone Palmitate (Invega Sustenna*) 156 mg IM Q30D [facility] Pantoprazole Sodium (Protonix Tab*) 40 mg PO DAILY [facility] Last Admin: 12/09/19 13:52 Dose: 40 mg - Discharge Plan Discharge Plan: Inpatient Hospitalization Lab Results - Lab Results Lab Results: 12/07/19 12/07/19 12/07/19 02:23 02:23 03:19 WBC 9.9 RBC 4.93 Hgb 14.5 Hct 41 L MCV 83 MCH 29 MCHC 36 RDW 15 Plt Count 222 MPV 8.4 Neut % (Auto) 57.6 Lymph % (Auto) 32.6 [place] % (Auto) 7.9 Eos % (Auto) 1.2 Baso % (Auto) 0.7 Absolute Neuts (auto) 5.7 Absolute Lymphs (auto) 3.2 Absolute Monos (auto) 0.8 Absolute Eos (auto) 0.1 Absolute Basos (auto) 0.1 Absolute Nucleated RBC 0.0 Nucleated RBC % 0.0 Sodium Potassium Chloride Carbon Dioxide Anion Gap BUN Creatinine Est GFR ( Amer) Est GFR (Non-Af Amer) BUN/Creatinine Ratio Glucose Hemoglobin A1c Calcium Total Bilirubin AST ALT Alkaline Phosphatase Total Protein Albumin Globulin Albumin/Globulin Ratio Triglycerides Cholesterol LDL Cholesterol HDL Cholesterol TSH Urine Color Yellow Urine Appearance Clear Urine pH 6.0 Ur Specific [place] 1.009 L Urine Protein Negative Urine Ketones Negative Urine Blood Negative Urine Nitrate Negative Urine Bilirubin Negative Urine Urobilinogen Negative Ur Leukocyte Esterase Negative Urine Glucose Negative Salicylates Urine Opiates Screen None detected Acetaminophen Ur Barbiturates Screen None detected Ur Phencyclidine Scrn None detected Ur Amphetamines Screen None detected U Benzodiazepines Scrn None detected Urine Cocaine Screen None detected U Cannabinoids Screen None detected Serum Alcohol 12/07/19 12/08/19 12/08/19 03:19 08:09 08:09 WBC RBC Hgb Hct MCV MCH MCHC RDW Plt Count MPV Neut % (Auto) Lymph % (Auto) [place] % (Auto) Eos % (Auto) Baso % (Auto) Absolute Neuts (auto) Absolute Lymphs (auto) Absolute Monos (auto) Absolute Eos (auto) Absolute Basos (auto) Absolute Nucleated RBC Nucleated RBC % Sodium 136 Potassium 3.8 Chloride 105 Carbon Dioxide 23 Anion Gap 8 BUN 11 Creatinine 0.83 Est GFR ( Amer) 118.2 Est GFR (Non-Af Amer) 97.7 BUN/Creatinine Ratio 13.3 Glucose 93 Hemoglobin A1c 5.5 Calcium 9.5 Total Bilirubin 0.40 AST 11 L ALT 17 Alkaline Phosphatase 67 Total Protein 6.9 Albumin 3.9 Globulin 3.0 Albumin/Globulin Ratio 1.3 Triglycerides 118 Cholesterol 206 LDL Cholesterol 133 HDL Cholesterol 49.4 TSH 2.35 Urine Color Urine Appearance Urine pH Ur Specific [place] Urine Protein Urine Ketones Urine Blood Urine Nitrate Urine Bilirubin Urine Urobilinogen Ur Leukocyte Esterase Urine Glucose Salicylates < 2.50 Urine Opiates Screen Acetaminophen < 15 Ur Barbiturates Screen Ur Phencyclidine Scrn Ur Amphetamines Screen U Benzodiazepines Scrn Urine Cocaine Screen U Cannabinoids Screen Serum Alcohol < 10
[2019-12-09] MEDS: Acetaminophen TAB* 325 MG PO PRN (21:51)
[2019-12-09] MEDS: Lithium Carbonate TAB* 300 MG PO SCH (21:51)
[2019-12-10] MEDS: chlorproMAZINE TAB* 100 MG PO SCH ×3 (09:04→20:38)
[2019-12-10] MEDS: amLODIPine TAB* 5 MG PO SCH (09:05)
[2019-12-10] MEDS: Pantoprazole TAB * 40 MG TAB PO SCH (09:05)
[2019-12-10] MEDS: Vitamin THERAPEUTIC TAB PO SCH (09:05)
[2019-12-10] MEDS: Atorvastatin* 40 MG TAB PO SCH (09:13)
[2019-12-10] MEDS: LORazepam TAB(*) 1 MG PO PRN ×2 (09:17→20:37)
[2019-12-10] MEDS: Lithium Carbonate TAB* 300 MG PO SCH (20:38)
[2019-12-11] MEDS: chlorproMAZINE TAB* 100 MG PO SCH ×3 (10:12→20:11)
[2019-12-11] MEDS: Pantoprazole TAB * 40 MG TAB PO SCH (10:12)
[2019-12-11] MEDS: Atorvastatin* 40 MG TAB PO SCH (10:13)
[2019-12-11] MEDS: Vitamin THERAPEUTIC TAB PO SCH (10:13)
[2019-12-11] MEDS: amLODIPine TAB* 5 MG PO SCH (10:13)
--- NOTE | 2019-12-11 10:58 | PN ---
Subjective - Subjective Date of Service: 12/11/19 Service Type: 79300 Hosp care 15 min low complexity Subjective: Per staff, patient has been seclusive except for meals and has not completed ADLs. During interview, patient is irritable in regards to "hearing everyone talk about me and telling me I'm going to ." He endorses ongoing chatter around him in various settings. We discuss that this is symptomatic and he is somewhat receptive. However, he repeats similar statements as above as if the AH are reality based. Dustless Operator encourages him to write down what he hears and asks those around him if they heard the same in order to identify if the sounds are internal or external. He is given a worksheet to complete the above and directed to complete ADLs. Objective - General Observations Appearance: Disheveled, Malodorous, Unkempt Stature: Overweight Posture: Slumped Eye Contact: Avoidant Behavior/Activity: Slowed - Interaction Observations Attitude Towards Examiner: Cooperative, Mistrustful Stated Mood: Dysphoric Affect: Blunted Speech Pattern/Tone: Perseverating, Quiet Volume Thought Process: Circumstantial, Impoverished Perception: WNL Thought Content: Paranoid Thought Process: Lethality: Paranoid Ideation Hallucination Type: Auditory Delusion Type: Persecution, Somatic - Cognitive Function Orientation: A&O x 4 Level of Consciousness: Arousable, Drowsy Cognition: Impaired Attention/Concentration Estimated Intelligence: Normal Insight: Difficulty Acknowledging Presence of Psyciatric Problems Judgment Within Normal Limits: No Ability to Make Reasonable Decisions: Moderately Impaired - Medication Compliance Cooperative with Inpatient Medication Regimen: Yes - Group Participation Participates in Group Activities: No Assessment - Assessment Merits Inpatient Hospitalization: For Immediate Safety, For Stabilization, Consolidate Improvements, For Discharge Planning Inpatient DSM-V Dx: F25.1 Clinical Impression: 49yo wm, mentally disabled, temporarily housed [facility] with known history of schizoaffective disorder and poor adherence to outpatient treatment. He presented to the ED via EMS due to AH, suicidal and homicidal ideation. He merits hospitalization for immediate safety and stabilization. Plan - Plan Treatment Plan: Name: CONSUELO JUDGE Birthdate: 1970 [id number] continue acute intensive psychiatric treatment. may decrease to q30min and allow staff pass per RN discretion. encourage ADLs and activity during the day. increase lithium to 600mg BID. continue other medications, as ordered. obtain lithium level on am of 12/11/19-- 0.26, subtherapeutic after 4 doses. discharge planning to include outpatient providers and social work lecturer. Continued Medication Management: Start Medication Medications: Current Medications Acetaminophen (Tylenol Tab*) 650 mg PO Q4H PRN PRN Reason: PAIN or TEMP > 101 F Last Admin: 12/09/19 21:51 Dose: 650 mg Al Hydrox/Mg Hydrox/Simethicone (Maalox Plus*) 30 ml PO Q4H PRN PRN Reason: INDIGESTION Last Admin: 12/07/19 08:28 Dose: 30 ml Amlodipine Besylate (Norvasc Tab*) 5 mg PO DAILY [facility] Last Admin: 12/11/19 10:13 Dose: 5 mg Atorvastatin Calcium (Lipitor*) 40 mg PO DAILY [facility] Last Admin: 12/11/19 10:13 Dose: 40 mg Chlorpromazine HCl (Thorazine Tab*) 100 mg PO TID [facility] Last Admin: 12/11/19 10:12 Dose: 100 mg Diphenhydramine HCl (Benadryl Po*) 50 mg PO BEDTIME PRN PRN Reason: INSOMNIA [place] Carbonate ([place] Carbonate Tab*) 600 mg PO BEDTIME [facility] Last Admin: 12/10/19 20:38 Dose: 600 mg Lorazepam (Ativan Tab(*)) 1 mg PO Q4H PRN PRN Reason: ANXIETY/AGITATION Last Admin: 12/10/19 20:37 Dose: 1 mg Multivitamins (Theragran Tab*) 1 tab PO DAILY [facility] Last Admin: 12/11/19 10:13 Dose: 1 tab Paliperidone Palmitate (Invega Sustenna*) 156 mg IM Q30D [facility] Pantoprazole Sodium (Protonix Tab*) 40 mg PO DAILY [facility] Last Admin: 12/11/19 10:12 Dose: 40 mg - Discharge Plan Discharge Plan: Inpatient Hospitalization
[2019-12-11] MEDS: Lithium Carbonate TAB* 300 MG PO SCH (20:11)
[2019-12-11] MEDS: Acetaminophen TAB* 325 MG PO PRN (23:37)
[2019-12-11] MEDS: Al Hydrox/Mg Hydrox/Simet LIQ* 30 ML UDC PO PRN (23:53)
[2019-12-12] MEDS: chlorproMAZINE TAB* 100 MG PO SCH ×2 (09:57→15:34)
[2019-12-12] MEDS: amLODIPine TAB* 5 MG PO SCH (09:57)
[2019-12-12] MEDS: Pantoprazole TAB * 40 MG TAB PO SCH (09:58)
[2019-12-12] MEDS: Vitamin THERAPEUTIC TAB PO SCH (09:58)
[2019-12-12] MEDS: Lithium Carbonate TAB* 300 MG PO SCH (09:58)
[2019-12-12] MEDS: Atorvastatin* 40 MG TAB PO SCH (09:59)
[2019-12-12 10:16] VITALS: BP 116/51
[2019-12-12] MEDS: LORazepam TAB(*) 1 MG PO PRN (15:35)
--- NOTE | 2019-12-13 15:32 | DS ---
CC: [facility]; Enroll Case Management * DATE OF ADMISSION: 12/07/2019. DATE OF DISCHARGE: 12/12/2019. SUPERVISING PSYCHIATRIST: Dr. Rober Roque * (dictated by KEELEY Santana ). DISCHARGE DIAGNOSES: Schizoaffective disorder, depressed type. CONDITION AT THE TIME OF DISCHARGE: Improved. The patient has been safe and in behavioral control. He has been seclusive, except for meals and medications. He has been medication compliant. The patient endorses ongoing auditory hallucinations and has impaired insight into this as a symptom of mental illness. He has been restarted on outpatient medications and Playita Cortada level was obtained, noted to be 0.26. Dose was then increased to 600 mg b.i.d. Patient stated understanding of the above. He is strongly encouraged to establish primary care with his career based intervention coordinator for ongoing concerns about physical complaints. He is encouraged to stay with a primary care provider in order to have access to hypertension and cholesterol medications. Social Work has coordinated with [facility] and identified that he is welcome to return to the [facility] for housing. The patient is agreeable to all of the above. He states readiness for discharge. The patient has chronic risk based on depressive and suicidal thinking. At the time of discharge, risk was lessened due to stabilization in the hospital. Also, the patient had low utility of inpatient care while here. The patient is discharged to home. MENTAL STATUS EXAM: The patient is a 49-year-old white male who appears older than stated age. He is minimally groomed, having showered the day before, wearing hospital blue scrubs, lying down in bed. He sits up and joins interview in a different location. He is alert and oriented times three. Eye contact is fair. Speech is soft and spontaneous. Concentration is good. Memory is 3/3. Mood is "okay" with a flat affect. No abnormal psychomotor activity noted. Thought process is goal-directed and circumstantial. Thought content is negative for suicidal ideation. He endorses passive wish without a plan. He endorses auditory hallucinations which are chronic in nature , as well as persecutory delusions. Insight and judgment are fair. His fund of knowledge is limited. He appears to have an average intellect. DISCHARGE INSTRUCTIONS GIVEN TO PATIENT: A. Medications: Amlodipine 5 mg p.o. daily, Lipitor 40 mg p.o. daily, Thorazine 100 mg p.o. t.i.d., Playita Cortada 600 mg p.o. b.i.d., Omeprazole 40 mg p.o. daily. He will remain on Invega Sustenna monthly injection and is due December 25. I discontinued Perphenazine due to the patient already being on two other antipsychotics. B. Diet: Low fat, low cholesterol. C. Activity: Ambulation as tolerated. The patient denies tobacco use. There are no pending labs or diagnostic studies. As stated above, he has a monthly injection of Invega Sustenna due on 12/26/2019. D. Follow-up care: The patient was referred back to [facility] and has an appointment with community nurse therapist Alejandro Back. He is referred back to case management for establishing primary care and other support services. E. Substance use follow-up: Not applicable. HOSPITAL COURSE - PART A: Reason for admission: The patient presented to the emergency department via ambulance due to auditory hallucinations causing sleep disturbance and somatic complaints. He endorsed homicidal and suicidal ideation. Soren is a 49-year-old white male, undomiciled, temporarily housed through public assistance at a hotel, with a known history of schizoaffective disorder and poor adherence to treatment. He has been hospitalized on this unit in the past and most recently was discharged from our care in August 2019. He is a client of [facility] and historically has poor engagement. He reports seeing his community nurse therapist Alejandro Back recently approximately two weeks ago for Invega Sustenna injection and that was reportedly given on 11/22/2019. The patient is lying in bed upon approach. He reports feeling depressed and irritated for approximately about a month. He initially denies any precipitating events. He reports suicidal thoughts on and off. He states his last attempt was shortly after hospitalization, although he is not sure of the timeline and states he was going to buy carburetor fluid. He reports "while living at the [facility], people never seem to stop talking about me." He states he can hear this through the valero and through the room. He states people are saying that he already murdered himself and he endorses thought broadcasting. He states that he has had voices like this primarily constantly for the last five years. When I asked how he differentiates between auditory hallucinations and hearing others, he states he hears them both nonstop. He is dismissive of information that the above may be related to schizophrenia. He goes on to say that his father tells him to come to the hospital to get a diagnosis. I believe he is referring to chest pain and somatic complaints. The patient states he had come to the ED and told he was fine. He is convinced that the hospital is lying to him as stated above because his father called and told the hospital not to help him. He reports he has not been taking oral medications because he is afraid that if he does take his blood pressure medicines and others that his eyes will not open again and he will . He states he is not taking lithium because his mood is usually [id number]-h -i-[id number]. He reports not taking Thorazine due to the concern of kidney functions. He reports he has not been prescribed cardiovascular or cholesterol medications except through the hospital. He denies current primary care provider. HOSPITAL COURSE - PART B: Psychiatric treatment rendered: The patient was admitted to the Adult Behavioral Services Unit on voluntary status. Code status was full. We reinstated known outpatient medications with the exception of Perphenazine as I was not comfortable with prescribing three antipsychotics. He continued Thorazine and Playita Cortada. The patient was encouraged to participate in unit routines, including ADL's and to remain awake during the day to regulate sleeping pattern. As stated above, the patient has low utility of inpatient services. He remained in his room and his bed for the majority of the hospital stay. With much prompting, he showered approximately once. We increased Playita Cortada to 600 mg b.i.d. The patient was given assignments to help him ascertain the difference between an auditory hallucinations. He told staff that he was quite sure that the hospital staff were out to get him. The patient was encouraged to establish care with a doctor due to what I refer to as his heart meds. He questioned that they were heart meds and I explained that high blood and cholesterol medications are part of the cardiovascular system and that he would be less likely needing to come to the ER as much as he has been if he were taking his medications and compliant with appointments. The patient denied any homicidal or violent ideation throughout the hospital stay. He denied active suicidal ideation and reported passive wish. He denied plans to hurt himself. Due to obligation to treat in less restrictive setting and low utility of inpatient care, discharge was agreed upon by treatment team. KEELEY SANTANA [id number]/[facility] #: [id number]
[2019-12-26] MEDS ORDERED: Paliperidone SUSTENNA* 156 MG/1 ML IM SCH (09:00)
== END 2019-12-12 16:05 | disposition home or self-care (01) | DRG 750 ==
LOC: ED 01:43 → BSU 05:39
PROVIDERS: ADMIT Psychiatry & Neurology Psychiatry; ATTEND Psychiatry & Neurology Psychiatry
DX: F25.1 Schizoaffective disorder, depressive type (principal); R45.851 Suicidal ideations; I10 Essential (primary) hypertension; E78.5 Hyperlipidemia, unspecified; J45.909 Unspecified asthma, uncomplicated; E66.9 Obesity, unspecified; Z59.0 Homelessness; Z87.891 Personal history of nicotine dependence; Z79.899 Other long term (current) drug therapy; Z68.36 Body mass index [BMI] 36.0-36.9, adult
CPT/HCPCS: 36415; 80053; 80061; 80178; 80307; 80320; 80329; 81003; 83036; 84443; 85025; 96372; 99222; 99231; 99232; 99284; A9270-GY; G0480; J2060

== ENCOUNTER 2021-04-17 19:53 | Observation (INO) ==
[2021-04-17 21:01] LABS: ABS Basophils 0.1 10^3/ul (0-0.2); ABS Eosinophils 0.2 10^3/ul (0-0.6); ABS Lymphocytes 2.9 10^3/ul (1.0-4.8); ABS Monocytes 0.8 10^3/ul (0-0.8); ABS Neutrophils 6.1 10^3/ul (1.5-7.7); Hematocrit 42 % (42-52); Hemoglobin 14.3 g/dL (14.0-18.0); Lymphocyte % 28.6 %; Mean Corpuscular HGB Conc 34 g/dL (31-36); Mean Corpuscular Hemoglobin 29 pg (27-31); Mean Corpuscular Volume 85 fL (80-94); Mean Platelet Volume 8.9 fL (7.4-10.4); Platelet Count 243 10^3/uL (150-450); Red Blood Count 4.98 10^6 /uL (4.18-5.48); Red Cell Distribution Width 17 % (10-15)
[2021-04-17 21:26] LABS: Albumin 3.8 g/dL (3.2-5.2); Anion Gap 7 mmol/L (2-11); CO2 Carbon Dioxide 29 mmol/L (22-32); Calcium 9.1 mg/dL (8.6-10.3); Chloride 102 mmol/L (101-111); Potassium 3.9 mmol/L (3.5-5.0); Sodium 138 mmol/L (135-145)
[2021-04-17 21:32] LABS: ALT 25 U/L (7-52); AST 13 U/L (13-39); Albumin/Globulin Ratio 1.4 (1-3); Alkaline Phosphatase 99 U/L (35-149); Blood Urea Nitrogen 12 mg/dL (6-24); EGFR African American 108.6 (>60); EGFR Non-African American 89.8 (>60); Globulin 2.7 g/dL (2-4); Glucose 123 mg/dL (70-100); Total Protein 6.5 g/dL (6.4-8.9); Troponin I 0.04 ng/mL (<0.03)
[2021-04-18 00:26] LABS: Troponin I 0.04 ng/mL (<0.03)
[2021-04-18 02:00] LABS: Urine Appearance Clear; Urine Bilirubin Negative (Negative); Urine Blood Negative (Negative); Urine Color Yellow; Urine Glucose Negative (Negative); Urine Ketones Negative (Negative); Urine Nitrite Negative (Negative); Urine Protein Negative (Negative); Urine Specific Gravity 1.013 (1.002-1.030); Urine Urobilinogen Negative (Negative)
[2021-04-18 02:16] LABS: Cholesterol 134 mg/dL; HDL Cholesterol 32.8 mg/dL; LDL Cholesterol 68 mg/dL; Magnesium 1.8 mg/dL (1.9-2.7); Triglycerides 164 mg/dL
[2021-04-18 02:23] LABS: Troponin I 0.04 ng/mL (<0.03)
[2021-04-18 02:32] LABS: TSH Ultra Thyroid Stim Horm 1.67 mcIU/mL (0.34-5.60)
[2021-04-18 02:43] LABS: Vitamin B12 194 pg/mL (180-914)
[2021-04-18] MEDS ORDERED: Magnesium Sulfate IV 1GM/100ML 1 GM/100 ML BAG IV ONE (03:19)
[2021-04-18] MEDS ORDERED: Nicotine PATCH 21 MG/24 HR PATCH TRANSDERM SCH (09:00)
[2021-04-18 15:25] VITALS: BP 126/68
== END 2021-04-18 17:25 | disposition home or self-care (01) ==
LOC: ED 19:53 → MEDTELE 04-18 00:01 → INTOOBSV 04-18 00:01 → MEDTELE 04-18 02:17
PROVIDERS: ADMIT Internal Medicine; ATTEND Internal Medicine

== ENCOUNTER 2024-08-27 04:41 | Observation (INO) ==
[2024-08-27 05:08] LABS: ABS Basophils 0.1 10^3/uL (0.0-0.1); ABS Eosinophils 0.1 10^3/uL (0.0-0.5); ABS Nucleated RBC 0.05 10^3/ul; Eosinophil % 0.5 %; Hematocrit 46.1 % (38-53); Hemoglobin 15.4 g/dL (13.2-16.3); Lymphocyte % 13.1 %; Mean Corpuscular Hemoglobin 27.5 pg (27-33); Mean Corpuscular Hgb Conc 33.4 g/dL (31-36); Mean Corpuscular Volume 82.3 fL (80-97); Mean Platelet Volume 8.4 fL (7.5-11.2); Nucleated Red Blood Cells % 0.3 %/100WBC (0.0-0.8); Platelet Count 283 10^3/uL (150-450); Red Blood Count 5.61 10^6/uL (4.06-5.63); Red Cell Distribution Width 17.9 % (12-17); White Blood Count 15.2 10^3/uL (3.6-10.2)
[2024-08-27 05:13] LABS: INR 1.13 (0.85-1.14)
[2024-08-27] MEDS: cefTRIAXone 1 gm/50 mL D5W 1 GM/50 ML BAG IV ONE (05:53)
[2024-08-27 05:59] LABS: Albumin/Globulin Ratio 1.3 (1-3); Calcium 9.1 mg/dL (8.6-10.3); Creatinine, Serum 0.67 mg/dL (0.67-1.17); Globulin 3.2 g/dL (2-4); Potassium 4.3 mmol/L (3.5-5.0); Total Bilirubin 0.9 mg/dL (0.2-1.0); Total Protein 7.2 g/dL (6.4-8.9); eGFR CKD-EPI 109.6 (>60)
[2024-08-27] MEDS ORDERED: Vancomycin 2,250 MG in NS 0.9% 250 ml 250 ML IVPB SCH (06:00)
[2024-08-27] MEDS: metroNIDAZOLE IV 500 MG/100ML 500 MG/100 ML BAG IVPB ONE (06:28)
[2024-08-27 06:30] LABS: C Reactive Protein 102.02 mg/L (<8.01)
[2024-08-27] MEDS: Iohexol 350 (CONTRAST) 500 ML MDV IV ONE (07:15)
[2024-08-27] MEDS: Vancomycin 2,000 MG in NS 0.9% 500 ml BAG 500 ML IVPB ONE (08:02)
[2024-08-27] MEDS ORDERED: Al Hydrox/Mg Hydrox/Simet LIQ 30 ML UDC PO PRN (09:11)
[2024-08-27] MEDS ORDERED: Zosyn per Pharmacy NOTE FOLLOW UP SCH (10:00)
[2024-08-27] MEDS ORDERED: Vancomycin per Pharmacy 1 EA NOTE FOLLOW UP SCH (10:00)
[2024-08-27] MEDS: ZOSYN 3.375 GM x ONE DOSE over 30 miuntes IV (10:51)
[2024-08-27] MEDS: Enoxaparin 40 MG/0.4 ML SYR SUBCUT SCH (13:06)
[2024-08-27] MEDS: Piperacillin/Tazobac 3.375 BAG 3.375 GM/100 ML BAG IV SCH (15:15)
[2024-08-27] MEDS: Vancomycin 1,500 MG in NS 0.9% 250 ml 250 ML IVPB SCH (16:11)
[2024-08-27] MEDS ORDERED: Sacubitril/Valsartan 97/103(NF) PO SCH (21:00)
[2024-08-28 05:54] LABS: ABS Basophils 0.1 10^3/uL (0.0-0.1); ABS Eosinophils 0.1 10^3/uL (0.0-0.5); ABS Lymphocytes 2.1 10^3/uL (1.0-4.8); ABS Monocytes 0.7 10^3/uL (0.0-1.1); ABS Neutrophils 6.7 10^3/uL (1.5-7.6); ABS Nucleated RBC 0.03 10^3/ul; Eosinophil % 1.4 %; Hemoglobin 14.9 g/dL (13.2-16.3); Lymphocyte % 21.7 %; Mean Corpuscular Hemoglobin 27.7 pg (27-33); Mean Corpuscular Hgb Conc 33.8 g/dL (31-36); Mean Platelet Volume 8.2 fL (7.5-11.2); Nucleated Red Blood Cells % 0.3 %/100WBC (0.0-0.8); Platelet Count 275 10^3/uL (150-450); Red Blood Count 5.37 10^6/uL (4.06-5.63); Red Cell Distribution Width 17.6 % (12-17); White Blood Count 9.8 10^3/uL (3.6-10.2)
[2024-08-28 06:32] LABS: C Reactive Protein 109.04 mg/L (<8.01); Calcium 8.5 mg/dL (8.6-10.3); Creatinine, Serum 0.65 mg/dL (0.67-1.17); Magnesium 2.2 mg/dL (1.9-2.7); eGFR CKD-EPI 110.6 (>60)
[2024-08-28] MEDS: Vancomycin Trough Check NOTE FOLLOW UP ONE (08:34)
[2024-08-29 09:34] VITALS: BP 137/60
[2024-08-30] MEDS ORDERED: Vancomycin Trough Check NOTE FOLLOW UP ONE (07:30)
== END 2024-08-29 11:45 | disposition home or self-care (01) ==
LOC: ED 04:41 → EDHOLD 09:11 → INTOOBSV 09:11 → MED 10:14
PROVIDERS: ADMIT Internal Medicine; ATTEND Internal Medicine